=== PATIENT | male | born 1955 | race Caucasian/White ===

== ENCOUNTER 2021-05-21 08:00 | Outpatient (CLI) | payer MEDICARE, SELFPAY ==
[2021-05-21 09:18] LABS: Alanine Aminotransferase 45 U/L (16-63); Albumin Level 3.4 g/dL (3.4-5.0); Alkaline Phosphatase 76 U/L (46-116); Anion Gap 9 mmol/L (8-16); Aspartate Amino Transferase 41 U/L (15-37); Bilirubin,Total 0.5 mg/dL (0.00-1.00); Blood Urea Nitrogen 43 mg/dL (7-18); Calcium 9.8 mg/dL (8.5-10.1); Carbon Dioxide 24 mmol/L (21-32); Chloride 107 mmol/L (98-108); Estimated Glomerular Filt Rate 49; Glucose 102 mg/dL (70-99); Osmolality Calculated 300 mOsm/kg (285-295); Potassium 5.4 mmol/L (3.5-5.1); Sodium 140 mmol/L (136-145); Total Protein 6.5 g/dL (6.4-8.2)
== END 2021-05-21 08:01 | disposition home or self-care (01) ==
LOC: CHSLAB 08:02
PROVIDERS: PCP Internal Medicine; Visit Provider Internal Medicine
DX: R79.89 Other specified abnormal findings of blood chemistry (principal)
CPT/HCPCS: 36415; 80053

== ENCOUNTER 2022-06-07 09:32 | Outpatient (CLI) | payer MEDICARE, SELFPAY ==
--- NOTE | ~2022-06-07 | XR_ITS ---
EXAMINATION: XR knee LT min 4V DATE: 06/07/2022 09:57 INDICATION: Left knee chronic pain. TECHNIQUE: 4 views of left knee including weightbearing views were obtained. COMPARISON: None. FINDINGS: There is lateral subluxation of patella. No fracture. There is moderate osteoarthritis of p atellofemoral compartment and mild osteoarthritis of medial and lateral compartments. There is chondr ocalcinosis of the menisci. No knee joint effusion. IMPRESSION: 1. Moderate left knee osteoarthritis. Reviewed, dictated and finalized at location A.
--- NOTE | ~2022-06-07 | XR_ITS ---
EXAMINATION: XR knee RT min 4V DATE: 06/07/2022 09:58 INDICATION: Right knee pain. TECHNIQUE: 4 views of right knee were obtained. COMPARISON: None. FINDINGS: There is varus angulation at the knee. No fracture. There is moderate osteoarthritis of med ial compartment and mild osteoarthritis of lateral and patellofemoral compartments. There is a small knee joint effusion with loose bodies. There are surgical clips in the medial soft tissues. IMPRESSION: 1. Moderate right knee osteoarthritis. 2. Small right knee joint effusion with loose bodies. Reviewed, dictated and finalized at location A.
== END 2022-06-07 09:33 | disposition home or self-care (01) ==
LOC: CHSIMG 09:34
PROVIDERS: PCP Internal Medicine; Visit Provider Internal Medicine
DX: M25.562 Pain in left knee (principal); M25.561 Pain in right knee; M17.0 Bilateral primary osteoarthritis of knee
CPT/HCPCS: 73564

== ENCOUNTER 2022-06-14 14:57 | Outpatient (RCR) | payer MEDICARE, SELFPAY ==
--- NOTE | 2022-06-14 17:52 | PTOPEVAL ---
Thank you for referring Will Collado to [facility].? The patient is scheduled to be seen for therapy? 2x/week for 10 visits. Please review, sign, date and return this plan of care UMA. I agree with and certify that the following plan of care is medically necessary. Referring Physician Date Admitting Provider: Attending Provider: Carrillo Mazariegos MD Referring Provider: *PT Outpatient Evaluation Start: 06/14/22 14:22 Freq: Status: Active Protocol: Document 06/14/22 14:22 [facility] (Rec: 06/14/22 16:00 [facility] [id number]) Therapy Assessment Status Assessment Status Assessment Status Evaluation Evaluation Information Problem Diagnosis Bilateral knee pain Onset 06/09/2022 Subjective Information Pt reports bilateral knee pain Query Text:As Reported By Patient/ that has been worsening over Family the past 5 years. Pain is generally about the same in both knees but patient reports some increased difficulty when using his R knee. Pain is felt at the front of the knee and sometimes in the knee joint, and pt also notes some pain behind his knee. Pain is described as an aching. Pt reports difficulty when getting in and out of car, squatting, lifting, and using ladder. Pain is constant. Denies falls. Likes to ride motorcycles. Prior Level of Function Activity Level (Last 3 Months) Occupation Retired Activity of Daily Living Ability Independent Indoor/Home Mobility Independent Community Mobility Independent Stairs Ability Independent Functional Cognition (Planning, Shopping Independent , Taking Medications) Cooking Yes Cleaning Yes Laundry Yes Shopping Yes Driving Yes Pain Assessment Timing of Pain Assessment Timing of Pain Assessment Pre-Treatment Pain Scale Pain Scale Used Numeric (1 - 10) Self Report Pain Assessment Bilateral Knee(s) Reported Pain Level 5 Pain Description Aching Pain Score Pain Score 5: Self Report Interventions Used Interventions Used By Clinicians Activity or ADL's,Education, Exercise,Manual Therapy Techniques Lower
== END 2022-07-09 16:43 | disposition home or self-care (01) ==
LOC: CHSPT 14:57
PROVIDERS: PCP Internal Medicine; Visit Provider Internal Medicine
DX: M25.562 Pain in left knee (principal); M25.561 Pain in right knee
CPT/HCPCS: 97014; 97110; 97140; G0283

== ENCOUNTER 2023-03-17 09:46 | Outpatient (CLI) | payer MEDICARE, SELFPAY ==
--- NOTE | ~2023-03-17 | MR_ITS ---
MRI of the cervical spine Clinical History: Cervical radiculopathy Technique: Axial T2-weighted and gradient images, and sagittal T1-weighted, T2-weighted, and STIR prosper ges were acquired. Findings: There is no fracture or subluxation of the cervical spine. Vertebral bodies maintain normal height and alignment. No suspicious bone marrow signal abnormality seen. At C2-C3, there is no significant disc bulge or herniation. No spinal canal stenosis, cord compressio n, or neural foraminal narrowing. At C3-C4, there is mild disc osteophyte complex. No definite canal stenosis or cord compression. Prob able mild bilateral neural foraminal narrowing with minimal facet arthropathy. At C4-C5, there is disc osteophyte complex without doroteo cord compression. Bilateral neural foramina are preserved. At C5-C6, there is disc osteophyte complex resulting in mild canal stenosis and minimal flattening th e ventral cord. There is bilateral neural foraminal narrowing, right worse than left. At C6-C7, there is central disc protrusion resulting in mild canal stenosis without doroteo cord compre ssion. There is probable bilateral neural foraminal narrowing, right worse than left. No abnormal signal seen in the spinal cord. Paravertebral soft tissues are unremarkable. Impression: Mild degenerative spondylosis overall, as detailed above. Reviewed, dictated and finalized at [facility]. Impression: Mild degenerative spondylosis overall, as detailed above.
== END 2023-03-17 09:47 | disposition home or self-care (01) ==
LOC: CHSIMG 09:48
PROVIDERS: PCP Internal Medicine; Visit Provider Internal Medicine
DX: M54.12 Radiculopathy, cervical region (principal); M43.02 Spondylolysis, cervical region
CPT/HCPCS: 72141

== ENCOUNTER 2023-03-24 16:16 | Outpatient (RCR) | payer MEDICARE, SELFPAY ==
--- NOTE | 2023-03-24 17:18 | PTOPEVAL1 ---
Assessment and note entered by Christal Floyd DPT Evaluation Information Assessment Status Evaluation Diagnosis neck pain, shoulder pain Subjective Information Patient reports neck pain that has been going on for about 3 weeks when he was changing the tranmission in his car. He reports he did not have pain at that moment but woke up a few days later with pain. He reports pain is at the lower neck and radiates to the L shoulder. He reports that he also gets numbness and tingling to the small 3 fingers. Patient has difficulty with grasping, sleeping, mowing, and turning his head to drive. Prior to 3 weeks ago he did not have above limitations. He is retired but continues to do house and yard work. Reported Pain Level Pain Score 7: Self Report Assessment PT Clinical Summary Patient is a 68 year old male who presents to PT with neck and L shoulder pain. Patient demonstrates decreased mobility of the cervical spine, decreased L UE strength, positive L median and ulnar nerve ULNT tests and hyopmobility of the L GHJ indicating possible L shoulder arthritic involvement and cervical spine radiculopathy. He would benefit from skilled PT to address impairments and return to PLOF. Plan of Care Interventions Electrical Stimulation,Hot Pack/Cold Pack,Manual Therapy,Mechanical Traction,Neuro Re-education, Patient/Caregiver Educati,Therapeutic Activities, Therapeutic Exercise PT Services Indicated Yes Treatment Frequency and 2x weekly for 12 visits Duration These treatments will address the objective and functional deficits as defined above. The patient will be advanced safely and appropriately in order for the patient to progress towards his/her prior level of function. Additional exercises will be introduced and as well as a comprehensive home exercise program upon discharge, if needed, ?to ensure carryover of functional gains achieved in the clinic. This treatment plan has been reviewed and agreement upon by the patient.
--- NOTE | 2023-05-06 11:36 | PTOPDC ---
Assessment and note entered by Day Cisse, PT Evaluation Information Assessment Status Discharge Diagnosis Neck pain, cervical pain Onset 03/18/23 Subjective Information Mr. Collado reports he has not had any neck pain for some time and he has not had left shoulder pain recently either. He was able to go camping for the last week and did not experience any pain or restrictions. He has no limitations with daily activities due to his shoulder or neck and would like to make today his last PT visit. Reported Pain Level Pain Score 0: Self Report Assessment PT Clinical Summary has completed 10 skilled PT visits for left shoulder and neck pain. He is reporting a resolution of pain and has been able to return to all daily activities without restrictions. He objectively demonstrates improved cervical and left shoulder ROM to functional limits as well as good left shoulder strength. He will be disharged to an independent HEP. Plan of Care PT Services Indicated No
== END 2023-05-06 13:37 | disposition home or self-care (01) ==
LOC: CHSPT 16:16
PROVIDERS: PCP Internal Medicine; Visit Provider Internal Medicine
DX: M54.12 Radiculopathy, cervical region (principal); M54.2 Cervicalgia
CPT/HCPCS: 97014; 97110; 97112; 97140; 97150; 97161; 97530; G0283

== ENCOUNTER 2023-04-08 11:17 | Outpatient (CLI) | payer MEDICARE, SELFPAY ==
--- NOTE | 2023-04-08 11:36 | ECG_ITS ---
Measurements Intervals Bureau Rate: 60 P: 52 SD: 258 QRS: -58 QRSD: 125 T: 50 QT: 380 QTc: 382 Interpretive Statements SINUS RHYTHM WITH FIRST DEGREE AV BLOCK WITH OCCASIONAL VENTRICULAR PREMATURE COMPLEXES LEFT ANTERIOR FASCICULAR BLOCK [QRS AXIS <= -45, QR IN I, RS IN II] ABNORMAL ECG NO PREVIOUS ECG AVAILABLE FOR COMPARISON Electronically Signed On 04-11-2023 9:20:28 CDT by Denys Stanley M.D.
== END 2023-04-08 11:18 | disposition home or self-care (01) ==
PROVIDERS: PCP Internal Medicine; Visit Provider Internal Medicine
DX: R00.2 Palpitations (principal); R94.31 Abnormal electrocardiogram [ECG] [EKG]
CPT/HCPCS: 93005

== ENCOUNTER 2023-08-19 13:03 | Outpatient (RCR) | payer MEDICARE, SELFPAY ==
--- NOTE | 2023-08-19 14:11 | OPREHPOC ---
Outpatient Therapy Plan of Care This is a Multidisciplinary Plan of Care that may contain components documented by all disciplines (PT, OT, and ST.) PT Problem 1 PT Problem #1 Knowledge Deficit PT Goal 1 Goal Patient to demonstrate independence with HEP Target Visit 6 PT Problem 2 PT Problem #2 Pain PT Goal 1 Goal 1. Patient to report highest pain at 2/10 2. Patient to report ability to sleep with no disturbance due to L knee pain Target Visit 12 PT Problem 3 PT Problem #3 Impaired Strength PT Goal 1 Goal Patient to demonstrate 5/5 strength of the L knee to return to house hold chores at PLOF Target Visit 12 PT Problem 4 PT Problem #4 Impaired Range of Motion PT Goal 1 Goal Patient to demonstrate 0-130 deg of L knee AROM in order to return to dress tasks and ambulation at PLOF Target Visit 12 PT Problem 5 PT Problem #5 Impaired Functional Mobil PT Goal 1 Goal 1. Patient to demonstrate 50% improvement in LEFS 2. Patient to ambulate with no AD and equal weight shift to B LE during stance phase Target Visit 12
--- NOTE | 2023-08-19 14:11 | PTOPEVAL1 ---
Assessment and note entered by Christal Floyd DPT Evaluation Information Assessment Status Evaluation Diagnosis L knee pain Onset 08/10/23 Subjective Information Patient reports he underwent L TKA on 08/10/23. He reports he returns to the MD for his first follow up on 08/24/23. He reports they sent him home with a HEP. He reports he has difficulty with walking, sleeping, and getting up from a chair. He is walking with a FWW and prior to surgery did not use an AD. He is retired. Reported Pain Level Pain Score 8: Self Report Assessment PT Clinical Summary Patient is a 68 year old male who presents to PT with L knee pain s/p L TKA. Patient demonstrates decreased L knee ROM, decreased L knee strength and impaired gait mechanics impairing his ability to navigate within his home, complete house hold tasks and drive. He would benefit from skilled PT to address impairments and return to PLOF. Plan of Care Interventions Electrical Stimulation,Gait Training,Hot Pack/Cold Pack,Manual Therapy,Neuro Re-education,Patient/ Caregiver Educati,Therapeutic Activities, Therapeutic Exercise PT Services Indicated Yes Treatment Frequency and 3x weekly for 12 visits Duration These treatments will address the objective and functional deficits as defined above. The patient will be advanced safely and appropriately in order for the patient to progress towards his/her prior level of function. Additional exercises will be introduced and as well as a comprehensive home exercise program upon discharge, if needed, ?to ensure carryover of functional gains achieved in the clinic. This treatment plan has been reviewed and agreement upon by the patient.
--- NOTE | 2023-09-09 13:53 | OPREHPOC ---
Outpatient Therapy Plan of Care This is a Multidisciplinary Plan of Care that may contain components documented by all disciplines (PT, OT, and ST.) PT Problem 1 PT Problem #1 Knowledge Deficit PT Goal 1 Goal Patient to demonstrate independence with HEP Target Visit 6 Progress Met PT Problem 2 PT Problem #2 Pain PT Goal 1 Goal 1. Patient to report highest pain at 2/10 2. Patient to report ability to sleep with no disturbance due to L knee pain Target Visit 12 Comment continue PT Problem 3 PT Problem #3 Impaired Strength PT Goal 1 Goal Patient to demonstrate 5/5 strength of the L knee to return to house hold chores at PLOF Target Visit 12 Comment continue PT Problem 4 PT Problem #4 Impaired Range of Motion PT Goal 1 Goal Patient to demonstrate 0-130 deg of L knee AROM in order to return to dress tasks and ambulation at PLOF Target Visit 12 Comment continue PT Problem 5 PT Problem #5 Impaired Functional Mobil PT Goal 1 Goal 1. Patient to demonstrate 50% improvement in LEFS 2. Patient to ambulate with no AD and equal weight shift to B LE during stance phase Target Visit 12 Progress Partially Met Comment 2. met
--- NOTE | 2023-09-09 13:54 | PTOPPROG ---
Assessment and note entered by Christal Floyd DPT Evaluation Information Assessment Status Progress Diagnosis L knee pain Onset 08/10/23 Subjective Information Patient reports his knee is improving. He reports he is no longer using an AD. He reports most pain with prolonged ambulation. Assessment PT Clinical Summary Mr. Collado has been seen for 10 visits of skilled PT with great progress towards goals. He demonstrates improved L knee strength and ROM and has been able to ambulate without AD. He continues to lack full L knee flexion and has difficulty with prolonged ambulation. He would benefit from continued skilled PT to address remaining impairments and return to PLOF. Plan of Care Interventions Electrical Stimulation,Gait Training,Hot Pack/Cold Pack,Manual Therapy,Neuro Re-education,Patient/ Caregiver Educati,Therapeutic Activities, Therapeutic Exercise PT Services Indicated Yes Treatment Frequency and continue with remaining 2 visits Duration These treatments will address the objective and functional deficits as defined above. The patient will be advanced safely and appropriately in order for the patient to progress towards his/her prior level of function. Additional exercises will be introduced and as well as a comprehensive home exercise program upon discharge, if needed, ?to ensure carryover of functional gains achieved in the clinic. This treatment plan has been reviewed and agreement upon by the patient.
--- NOTE | 2023-09-16 11:56 | OPREHPOC ---
Outpatient Therapy Plan of Care This is a Multidisciplinary Plan of Care that may contain components documented by all disciplines (PT, OT, and ST.) PT Problem 1 PT Problem #1 Knowledge Deficit PT Goal 1 Goal Patient to demonstrate independence with HEP Target Visit 6 Progress Met PT Problem 2 PT Problem #2 Pain PT Goal 1 Goal 1. Patient to report highest pain at 2/10 2. Patient to report ability to sleep with no disturbance due to L knee pain Target Visit 12 Comment continue PT Problem 3 PT Problem #3 Impaired Strength PT Goal 1 Goal Patient to demonstrate 5/5 strength of the L knee to return to house hold chores at PLOF Target Visit 12 Progress Met Comment continue PT Problem 4 PT Problem #4 Impaired Range of Motion PT Goal 1 Goal Patient to demonstrate 0-130 deg of L knee AROM in order to return to dress tasks and ambulation at PLOF Target Visit 16 Comment progressing PT Problem 5 PT Problem #5 Impaired Functional Mobil PT Goal 1 Goal 1. Patient to demonstrate 50% improvement in LEFS 2. Patient to ambulate with no AD and equal weight shift to B LE during stance phase Target Visit 16 Progress Partially Met Comment 2. met
--- NOTE | 2023-09-16 11:56 | PTOPREEVAL ---
Assessment and note entered by Christal Floyd DPT Evaluation Information Assessment Status Re-evaluation Diagnosis L knee pain Onset 08/10/23 Subjective Information Patient reports his knee is improving. He reports he is no longer using an AD. He reports most pain with prolonged ambulation. Reported Pain Level Pain Score 2: Self Report Assessment PT Clinical Summary Mr Collado has been seen for 12 visits of skilled PT . Patient demonstrates -2-122deg of L knee AROM and 5/5 strength of the L knee. Patient has improved gait mechanics but continues to fatigue quickly and has pain with prolonged ambulation. Patient would benefit from continued skilled PT to address remaining impairments and return to PLOF. Plan of Care Interventions Electrical Stimulation,Gait Training,Hot Pack/Cold Pack,Manual Therapy,Neuro Re-education,Patient/ Caregiver Educati,Therapeutic Activities, Therapeutic Exercise PT Services Indicated Yes Treatment Frequency and continue 2x weekly for 4 more visits Duration These treatments will address the objective and functional deficits as defined above. The patient will be advanced safely and appropriately in order for the patient to progress towards his/her prior level of function. Additional exercises will be introduced and as well as a comprehensive home exercise program upon discharge, if needed, ?to ensure carryover of functional gains achieved in the clinic. This treatment plan has been reviewed and agreement upon by the patient.
--- NOTE | 2023-09-22 14:04 | OPREHPOC ---
Outpatient Therapy Plan of Care This is a Multidisciplinary Plan of Care that may contain components documented by all disciplines (PT, OT, and ST.) PT Problem 1 PT Problem #1 Knowledge Deficit PT Goal 1 Goal Patient to demonstrate independence with HEP Target Visit 6 Progress Met PT Problem 2 PT Problem #2 Pain PT Goal 1 Goal 1. Patient to report highest pain at 2/10 2. Patient to report ability to sleep with no disturbance due to L knee pain Target Visit 12 Progress Not Met Comment continue PT Problem 3 PT Problem #3 Impaired Strength PT Goal 1 Goal Patient to demonstrate 5/5 strength of the L knee to return to house hold chores at PLOF Target Visit 12 Progress Met Comment continue PT Problem 4 PT Problem #4 Impaired Range of Motion PT Goal 1 Goal Patient to demonstrate 0-130 deg of L knee AROM in order to return to dress tasks and ambulation at PLOF Target Visit 16 Progress Met PT Problem 5 PT Problem #5 Impaired Functional Mobil PT Goal 1 Goal 1. Patient to demonstrate 50% improvement in LEFS 2. Patient to ambulate with no AD and equal weight shift to B LE during stance phase Target Visit 16 Progress Met
--- NOTE | 2023-09-22 14:04 | PTOPDC ---
Assessment and note entered by Christal Floyd DPT Evaluation Information Assessment Status Re-evaluation Diagnosis L knee pain Onset 08/10/23 Subjective Information Patient reports he is back to doing all activities he was doing prior for surgery. He reports MD released him and told him his knee was doing good. He reports he is somewhat doing his HEP Reported Pain Level Pain Score 3: Self Report Assessment PT Clinical Summary Mr. Collado attended 14 visits of skilled PT with great progress and release by MD. He met all goals except for pain during POC. He has achieved 130 deg of L knee flexion as well as 5/5 strength of the L knee. He has returned to all previous ALDs and is appropriate for DC at this time. Plan of Care PT Services Indicated No
== END 2023-09-22 14:46 | disposition home or self-care (01) ==
LOC: CHSPT 13:03
PROVIDERS: PCP Internal Medicine; Visit Provider Orthopaedic Surgery
DX: Z96.652 Presence of left artificial knee joint (principal); Z47.1 Aftercare following joint replacement surgery
CPT/HCPCS: 97016; 97110; 97150; 97161; 97530

== ENCOUNTER 2024-03-12 03:02 | Emergency (ER) | payer MEDICARE, SELFPAY ==
[2024-03-12] VITALS (34 sets, daily range): BP systolic 92–126; BP diastolic 48–85; PULSE 32–49; RESP 12–59; TEMP 35.3; O2SAT 95–100
--- NOTE | ~2024-03-12 | XR_ITS ---
Portable chest x-ray Comparison: 05/12/2013 Clinical History: Altered mental status Findings: Possible minimal interstitial edema. Cardiomediastinal silhouette is stable, status post CABG. Bones and soft tissues are unremarkable. Impression: Possible minimal interstitial edema. Stable cardiomegaly, status post CABG. Reviewed, dictated and finalized at [facility]. Impression: Possible minimal interstitial edema. Stable cardiomegaly, status post CABG.
--- NOTE | ~2024-03-12 | CT_ITS ---
Noncontrast CT scan of the cervical spine Technique: Multiple contiguous axial [address] images of the cervical spine were obtained and rec onstructed in 2D sagittal and coronal planes on the acquisition scanner. Dose reduction technique was used on this scan by utilizing automated exposure control, adjustment of the mA and/or kV according to patient size. The dose-length product (DLP) was 493.59 mGy-cm. Clinical History: Pain Findings: No fractures or dislocations. There is moderate degenerative disc narrowing at C5-C6 and C 6-C7. There are mild degenerative changes remaining cervical levels. There are mild facet joint degen erative changes in the cervical spine. There is bilateral neural foraminal narrowing at C5-C6 and C6- C7., Mild canal stenosis at C5-C6 and C6-C7, with disc osteophyte complexes at these levels. No preve rtebral soft tissue swelling. Impression: No fracture or subluxation of the cervical spine. Degenerative change, as above. Reviewed, dictated and finalized at [facility]. Impression: No fracture or subluxation of the cervical spine. Degenerative change, as above.
--- NOTE | ~2024-03-12 | CT_ITS ---
Non-contrast Head CT History: Status post fall Technique: Axial non-contrast imaging of the brain was performed. Dose reduction technique was used on this scan by utilizing automated exposure control and iterative reconstruction technique. The dose -length product (DLP) was 605.33 mGy-cm. Findings: There is no evidence of intracranial hemorrhage, mass lesion, or acute infarct. Brain par enchyma appears normal. The ventricles and subarachnoid spaces are normal in size. The calvarium ap pears normal. The visualized paranasal sinuses and mastoid air cells are clear. Impression: No significant abnormality seen. Reviewed, dictated and finalized at location . Impression: No significant abnormality seen.
--- NOTE | ~2024-03-12 | CT_ITS ---
Clinical Indication: Hypertension, elevated d-dimer CT Scan of the Chest with Contrast: Technique: Contiguous sections were acquired throughout the chest after intravenous administration of 100 cc of Omnipaque 350. Dose reduction technique was used on this scan by utilizing automated expos ure control and iterative reconstruction technique. The dose-length product (DLP) was 865.30 mGy-cm. Findings: There is no evidence of any significant mediastinal, hilar or axillary lymphadenopathy. There is no f illing defect in the pulmonary arterial tree to suggest pulmonary embolus. There is no evidence of ao rtic dissection or aneurysm. Cardiomegaly noted. There is no evidence of pleural or pericardial effusion. There is probable mild interstitial thickening diffusely in the lungs. Images through the upper abdomen reveal distended, but otherwise unremarkable gallbladder. Impression: No evidence of pulmonary embolus, aortic dissection, or aortic aneurysm. Probable minimal interstitial edema versus minimal chronic interstitial disease. Reviewed, dictated and finalized at [facility]. Impression: No evidence of pulmonary embolus, aortic dissection, or aortic aneurysm. Probable minimal interstitial edema versus minimal chronic interstitial disease .
--- NOTE | 2024-03-12 03:05 | ED.AMS ---
HPI - Altered Mental Status General Chief Complaint: Altered Mental Status Stated Complaint: Diabetic Issues Time Seen by Provider: 03/12/24 03:05 Source: patient and EMS Mode of arrival: EMS Limitations: no limitations History of Present Illness HPI narrative: Patient is a 69-year-old male with altered mental status and confusion since 2:00 a.m. vs 10pm (she saw him well at 10pm and he walked to the bathroom at 2am and found on floor). He went to the bathroom and was well according to the and was found on the floor around the same time. EMS BS: 38 (back to normal in ER and still AMS) FAST: R droop, slurred speech, LKW 10p and walked to BR 2a () GCS: AMS (8) EKG: SB in 40s MD complaint: altered mental status, confusion and decreased responsiveness Onset (ago): hour(s) (1) Time: 02:00 Timing confirmed by: spouse Severity: moderate Consistency of symptoms: waxing and waning Context: other (DM2/CAD/HTN) Associated symptoms: denies other symptoms Treatments prior to arrival: glucose, IV fluid and other (Narcan, Atropine) Related Data Home Medications Medication Instructions Recorded Confirmed Adult Aspirin EC Low Strength 81 mg PO DAILY 03/12/24 03/12/24 atorvastatin 80 mg tablet 80 mg PO DAILY 03/12/24 03/12/24 carvedilol 12.5 mg tablet 12.5 mg PO BID 03/12/24 03/12/24 celecoxib 200 mg capsule 200 mg PO DAILY 03/12/24 03/12/24 clopidogrel 75 mg tablet 75 mg PO DAILY 03/12/24 03/12/24 escitalopram oxalate 20 mg tablet 20 mg PO DAILY 03/12/24 03/12/24 ferrous sulfate 325 mg (65 mg 325 mg PO DAILY 03/12/24 03/12/24 iron) tablet (FeroSul) gabapentin 300 mg capsule 600 mg PO BID 03/12/24 03/12/24 lisinopril 40 mg tablet 40 mg PO DAILY 03/12/24 03/12/24 ranolazine 500 mg tablet,extended 500 mg PO BID 03/12/24 03/12/24 release,12 hr Allergies Allergy/AdvReac Type Severity Reaction Status Date / Time No Known Allergies Allergy Verified 03/12/24 04:18 Review of Systems Review of Systems: All systems reviewed & are unremarkable except as noted in HPI and below Constitutional: Constitutional: Reports no additional constitutional complaints Eyes: Eyes: Reports no additional eye complaints ENT: Reports system reviewed and no additional complaints, except as documented Cardiovascular: Cardiovascular: Reports no additional cardiovascular complaints Respiratory: Respiratory: Reports no additional respiratory complaints Gastrointestinal: Gastrointestinal: Reports no additional gastrointestinal complaints Genitourinary: Genitourinary: Reports no additional male genitourinary complaints Musculoskeletal: Musculoskeletal: Reports no additional musculoskeletal complaints Integumentary/Breasts: Skin/Breast: Reports system reviewed and no additional complaints, except as docu Neurologic: Reports system reviewed and no additional complaints, except as documented Psychiatric: Psychiatric: Reports no additional psychiatric complaints Endocrine: Endocrine: Reports no additional endocrine complaints Hematologic/Lymphatic: Hematologic/Lymphatic: Reports no additional hematologic/lymphatic complaints Allergic/Immunologic: Allergic/Immunologic: Reports no additional allergic/immunologic complaints Exam Const: General: ill appearing Nutritional Appearance: well nourished Orientation/consciousness: No patient oriented x3 Limitations: altered mental status HENMT: Head: normal to inspection Ears: external ears normal Face/Nose/Sinus: Normal external nose present Eyes: Conjunctivae: conjunctivae normal Pupils: Equal, round and reactive pupils present EOM: EOMs intact bilaterally Neck: Neck: normal visual inspection Chest: Chest palpation & inspection: normal inspection of the chest Resp: Effort & Inspection: normal respiratory effort and not labored Auscultation: clear to auscultation bilaterally Cardio: Rate: abnormal rate and bradycardic Rhythm: regular rhythm Heart sounds: no murmurs GI: Inspectio
[2024-03-12 03:24] LABS: Glucose Point of Care 149 mg/dl (65-105)
[2024-03-12] MEDS: ATROPINE SULFATE 1 MG/10 ML SYRINGE (03:26)
--- NOTE | 2024-03-12 03:44 | ECG_ITS ---
SEE SCANNED COPY FOR CONFIRMED REPORT MTDD
[2024-03-12 03:57] LABS: Basophils Absolute Auto 0.03 K/mm3 (0.00-0.10); Basophils Percent Auto 0.3 % (0.0-1.0); Eosinophils Absolute Auto 0.16 K/mm3 (0.02-0.50); Eosinophils Percent Auto 1.7 % (1.0-6.0); Hematocrit 38.9 % (37.0-46.0); Hemoglobin 12.5 g/dL (12.4-15.3); Immature Granulocyte Absolute 0.13 K/mm3 (0.00-0.00); Immature Granulocyte Percent A 1.4 % (0.0-0.0); Lymphocytes Absolute Auto 1.28 K/mm3 (1.10-4.50); Lymphocytes Percent Auto 13.4 % (18.0-42.0); Mean Corpuscular HGB Conc 32.1 g/dL (32-36); Mean Corpuscular Hemoglobin 31.8 pg (27.0-31.0); Monocytes Absolute Auto 0.76 K/mm3 (0.10-0.90); Neutrophils Absolute Auto 7.16 K/mm3 (1.70-7.20); Neutrophils Percent Auto 75.2 % (50.0-70.0); Platelet Count Result 138 K/mm3 (150-420); Red Blood Count 3.93 M/mm3 (4.70-6.10); Red Cell Distribution Width 13.4 % (11.6-14.4); White Blood Count 9.5 K/mm3 (4.8-10.8)
[2024-03-12 04:05] LABS: Prothrombin Time 10.5 Seconds (9.50-12.1)
[2024-03-12] MEDS: SODIUM CHLORIDE 0.9% IV 1,000 ML 999 ML (04:09)
[2024-03-12 04:12] LABS: Lactic Acid Reflex 1.6 mmol/L (0.4-2.0)
[2024-03-12 04:15] LABS: Alanine Aminotransferase 31 U/L (16-63); Albumin Level 3.6 g/dL (3.4-5.0); Alkaline Phosphatase 74 U/L (46-116); Anion Gap 10 mmol/L (4-12); Aspartate Amino Transferase 30 U/L (15-37); Bilirubin,Total 0.6 mg/dL (0.00-1.00); Blood Urea Nitrogen 25 mg/dL (7-18); Carbon Dioxide 28 mmol/L (21-32); Chloride 101 mmol/L (98-108); D Dimer 1.38 mg/L (0.19-0.50); Estimated CRCL calculation 53 ml/min; Estimated Glomerular Filt Rate 44; Glucose 118 mg/dL (70-99); Magnesium 2.2 mg/dL (1.8-2.4); NT Pro B Type Natriuretic Pept 573 pg/mL (0-125); Osmolality Calculated 293 mOsm/kg (285-295); Potassium 3.7 mmol/L (3.5-5.1); Sodium 139 mmol/L (136-145); Thyroid Stimulating Hormone 3.62 uIU/mL (0.36-3.74); Troponin I 16.8 ng/L (0.00-60.4)
[2024-03-12 04:27] LABS: Glucose Point of Care 88 mg/dl (65-105)
[2024-03-12] MEDS: DEXTROSE 50% 25 GM/50 ML SYRINGE IV PUSH (04:30)
[2024-03-12 05:41] LABS: Glucose Point of Care 143 mg/dl (65-105)
[2024-03-12 05:59] LABS: Appearance Urine Clear (Clear); Bilirubin Urine Negative (Negative); Blood Urine 2+ (Negative); Color Urine Yellow (Yellow); Glucose Urine UA Negative (Negative); Ketones Urine Negative (Negative); Leukocyte Esterase Ur Negative LEU/UL (Negative); Nitrate Urine Negative (Negative); Protein Urine Negative (Negative); Specific Grav Ur <= 1.005 (1.010-1.020)
[2024-03-12 06:03] LABS: Add Urine Microscopic? YES; WBC Urine None seen /hpf (0-3)
[2024-03-12 06:04] LABS: Bacteria Urine Rare /hpf
[2024-03-12 06:35] LABS: Glucose Point of Care 121 mg/dl (65-105)
--- NOTE | 2024-03-18 12:39 | PC.NURSE ---
03/18/24 FINAL BLOOD CULTURE NO GROWTH AFTER 5 DAYS
== END 2024-03-12 07:00 | disposition home or self-care (01) ==
PROVIDERS: Emergency Provider Emergency Medicine; PCP Internal Medicine
DX: E11.649 Type 2 diabetes mellitus with hypoglycemia without coma (principal); N17.9 Acute kidney failure, unspecified; E86.0 Dehydration; I25.10 Atherosclerotic heart disease of native coronary artery without angina pectoris; I10 Essential (primary) hypertension
CPT/HCPCS: 36415; 70450; 71045; 71275; 72125; 80053; 81001; 82948; 83605; 83735; 83880; 84443; 84484; 85025; 85380; 85610; 85730; 87040; 93005; 96361; 96374; 96375; 99284; J0461; J7030; Q9967

== ENCOUNTER 2024-03-24 07:26 | Outpatient (CLI) | payer MEDICARE, SELFPAY ==
--- NOTE | ~2024-03-24 | MR_ITS ---
EXAMINATION: MR lumbar spine wo con DATE: 03/24/2024 08:20 INDICATION: Lumbar stenosis. TECHNIQUE: Magnetic resonance imaging (MRI) of the lumbar spine was performed without intravenous con trast. Sequences included sagittal T2-weighted FSE, sagittal T2-weighted FS FSE, sagittal T1-weighted FSE, and axial T2-weighted FSE. COMPARISON: Lumbar spine MRI 10/24/2019 FINDINGS: There is 3 mm retrolisthesis of T12 on L1 and L1 on L2 and 7 mm anterolisthesis of L4 on L5 . There is mild chronic anterior wedging of T12, L1, and L4 vertebral bodies. There is mildly decreas ed disc height at T12-L1, L1-L2, L3-L4, and L4-L5. The distal spinal cord signal intensity is normal. The conus medullaris is at T12-L1. The following disc levels are specifically discussed: L1-L2: The disc is bulging and has an annular fissure. There is moderate right and mild left facet josesito int osteoarthritis. There is mild bilateral neural foraminal stenosis. There is mild central canal st enosis. L2-L3: The disc is bulging and has an annular fissure. There is severe bilateral facet joint osteoart hritis. There is mild right and moderate left neural foraminal stenosis. There is mild central canal stenosis. L3-L4: The disc is bulging and has an annular fissure. There is severe bilateral facet joint osteoart hritis. There is moderate right and mild left neural foraminal stenosis. There is mild central canal stenosis. L4-L5: The disc is bulging with superimposed right subarticular zone extrusion. There is severe bilat eral facet joint osteoarthritis. There is moderate bilateral neural foraminal stenosis. There is mild central canal stenosis. There is severe stenosis of the right lateral recess. There are changes of p osterior decompression. L5-S1: There is a central protrusion. There is severe bilateral facet joint osteoarthritis. There is mild bilateral neural foraminal stenosis. There is mild central canal stenosis. IMPRESSION: 1. Moderate lumbar spondylosis, worsened at L4-L5. Reviewed, dictated and finalized at location A.
== END 2024-03-24 07:27 | disposition home or self-care (01) ==
LOC: CHSIMG 07:27
PROVIDERS: PCP Internal Medicine; Visit Provider Internal Medicine
DX: M48.061 Spinal stenosis, lumbar region without neurogenic claudication (principal); M43.06 Spondylolysis, lumbar region
CPT/HCPCS: 72148

== ENCOUNTER 2024-07-07 11:36 | Emergency (ER) | payer MEDICARE, SELFPAY ==
[2024-07-07] VITALS (25 sets, daily range): BP systolic 93–125; BP diastolic 46–78; PULSE 50–68; RESP 0–31; TEMP 36.8; O2SAT 96–100
--- NOTE | ~2024-07-07 | XR_ITS ---
XR chest 1V portable 07/07/2024 12:01 Indication: Chest pain for 3 days Procedure: AP portable chest Comparison: 03/12/2024 Findings: Status post median sternotomy for CABG. Cardiomegaly. Mild pulmonary vascular congestion. N o focal pneumonia, edema, pleural effusion or pneumothorax. Impression: 1: Cardiomegaly with pulmonary vascular congestion. Reviewed, dictated and finalized at location B. Impression: 1: Cardiomegaly with pulmonary vascular congestion.
--- NOTE | 2024-07-07 11:48 | ECG_ITS ---
Test Date: 2024-07-07 11:56:52 Measurements Intervals [place] Rate: 60 P: 16 CT: 248 QRS: -57 QRSD: 120 T: 93 QT: 417 QTc: 417 Interpretive Statements SINUS RHYTHM WITH FIRST DEGREE AV BLOCK LEFT ANTERIOR FASCICULAR BLOCK NONSPECIFIC ST & T-WAVE ABNORMALITY- HIGH LATERAL LEADS BASELINE ARTIFACT- I, III, AVR, AVL ABNORMAL ECG No previous ECG available for comparison Electronically Signed On 07-08-2024 07:56:08 CDT by Reese Moffett D.O.
[2024-07-07] MEDS: ASPIRIN 81 MG CHEWABLE TABLET 324 MG PO (12:07)
[2024-07-07 12:17] LABS: Basophils Absolute Auto 0.03 K/mm3 (0.00-0.10); Basophils Percent Auto 0.3 % (0.0-1.0); Eosinophils Absolute Auto 0.03 K/mm3 (0.02-0.50); Eosinophils Percent Auto 0.3 % (1.0-6.0); Hematocrit 32.9 % (37.0-46.0); Hemoglobin 11.1 g/dL (12.4-15.3); Immature Granulocyte Absolute 0.03 K/mm3 (0.00-0.00); Immature Granulocyte Percent A 0.3 % (0.0-0.0); Lymphocytes Absolute Auto 1.02 K/mm3 (1.10-4.50); Lymphocytes Percent Auto 11.8 % (18.0-42.0); Mean Corpuscular HGB Conc 33.7 g/dL (32-36); Mean Corpuscular Hemoglobin 32.8 pg (27.0-31.0); Mean Corpuscular Volume 97.3 fL (78.0-102.0); Mean Platelet Volume 11.6 fl (8.7-11.0); Monocytes Absolute Auto 0.86 K/mm3 (0.10-0.90); Monocytes Percent Auto 9.9 % (2.0-11.0); Neutrophils Absolute Auto 6.71 K/mm3 (1.70-7.20); Neutrophils Percent Auto 77.4 % (50.0-70.0); Platelet Count Result 135 K/mm3 (150-420); Red Blood Count 3.38 M/mm3 (4.70-6.10); Red Cell Distribution Width 13.2 % (11.6-14.4); White Blood Count 8.7 K/mm3 (4.8-10.8)
[2024-07-07 12:27] LABS: Add Urine Microscopic? NO; Appearance Urine Clear (Clear); Bilirubin Urine Negative (Negative); Blood Urine Negative (Negative); Color Urine Light Yellow (Yellow); Glucose Urine UA 1+ (Negative); Ketones Urine Negative (Negative); Leukocyte Esterase Ur Negative LEU/UL (Negative); Nitrate Urine Negative (Negative); Protein Urine Negative (Negative); Specific Grav Ur 1.015 (1.010-1.020); pH Urine 6.5 (5.0-8.0)
[2024-07-07 12:29] LABS: INR 0.9; Partial Thromboplastin Time 23.8 Sec (23.9-30.70); Prothrombin Time 10.4 Seconds (9.50-12.1)
[2024-07-07 12:38] LABS: Alanine Aminotransferase 168 U/L (16-63); Albumin Level 2.9 g/dL (3.4-5.0); Alkaline Phosphatase 89 U/L (46-116); Anion Gap 12 mmol/L (4-12); Aspartate Amino Transferase 257 U/L (15-37); Bilirubin,Total 0.7 mg/dL (0.00-1.00); Blood Urea Nitrogen 19 mg/dL (7-18); Carbon Dioxide 23 mmol/L (21-32); Chloride 101 mmol/L (98-108); Estimated CRCL calculation 58 ml/min; Estimated Glomerular Filt Rate > 60; Glucose 231 mg/dL (70-99); Lipase 28 U/L (16-77); NT Pro B Type Natriuretic Pept 4406 pg/mL (0-125); Osmolality Calculated 291 mOsm/kg (285-295); Potassium 4.1 mmol/L (3.5-5.1); Sodium 136 mmol/L (136-145); Total Protein 6.4 g/dL (6.4-8.2)
--- NOTE | 2024-07-07 12:39 | PC.NURSE ---
Lab reports troponin is critically high but machine wont read and has to dilute down which means its over [id number], ERP is made aware.
[2024-07-07 12:52] LABS: SARS-CoV-2 RNA PCR Negative (Negative)
[2024-07-07 12:54] LABS: Influenza A QL RT-PCR Negative (Negative); Influenza B QL RT-PCR Negative (Negative); RSV RNA, RT-PCR Negative (Negative)
[2024-07-07 13:00] LABS: Troponin I > 25000.0 ng/L (0.00-60.4)
[2024-07-07] MEDS: HEPARIN SODIUM 5,000 UNITS/ML VIAL 4000 UNITS IV PUSH (13:03)
[2024-07-07] MEDS: HEPARIN SOD/D5W 100 UNITS/ML 25,000 UNITS/250 ML BAG 10 UNITS IV CONT (13:04)
--- NOTE | 2024-07-07 13:08 | ED.CHESTPAIN ---
HPI - Chest Pain General Chief Complaint: Chest Pain Stated Complaint: heart problems Time Seen by Provider: 07/07/24 11:42 Source: patient and family Mode of arrival: ambulatory Limitations: no limitations History of Present Illness HPI narrative: this is a 69 old male with a significant coronary artery history with bypass approximately 4 years ago and numerous stent placement. Patient history of hyperlipidemia and hypertension presents with a 2 day history of chest pain tightness midsternal no radiation also having dyspnea and chest pain with minimal exertion started 2 days ago but has persisted and presents to the emergency department. No radiation of this pain no diaphoresis no nausea or vomiting, has nitro patch that he placed at home current pain is rated about a 4/10. MD complaint: chest pain Pertinent past history: coronary artery disease Onset (ago): day(s) Timing of current episode: constant Onset: during rest and during exertion Pain location: substernal Pain radiation: none Severity: mild Pain scale (0-10): 4 Quality: tightness and heaviness Relieving factors: nitroglycerin Exacerbating factors: exertion Treatment prior to arrival: nitroglycerin Risk Factors Coronary artery disease risk factors: hypertension Related Data Home Medications Medication Instructions Recorded Confirmed Adult Aspirin EC Low Strength 81 mg PO DAILY 03/12/24 03/12/24 atorvastatin 80 mg tablet 80 mg PO DAILY 03/12/24 03/12/24 carvedilol 12.5 mg tablet 12.5 mg PO BID 03/12/24 03/12/24 celecoxib 200 mg capsule 200 mg PO DAILY 03/12/24 03/12/24 clopidogrel 75 mg tablet 75 mg PO DAILY 03/12/24 03/12/24 escitalopram oxalate 20 mg tablet 20 mg PO DAILY 03/12/24 03/12/24 ferrous sulfate 325 mg (65 mg 325 mg PO DAILY 03/12/24 03/12/24 iron) tablet (FeroSul) gabapentin 300 mg capsule 600 mg PO BID 03/12/24 03/12/24 lisinopril 40 mg tablet 40 mg PO DAILY 03/12/24 03/12/24 ranolazine 500 mg tablet,extended 500 mg PO BID 03/12/24 03/12/24 release,12 hr Allergies Allergy/AdvReac Type Severity Reaction Status Date / Time No Known Allergies Allergy Verified 07/07/24 12:18 Review of Systems Review of Systems: All systems reviewed & are unremarkable except as noted in HPI and below PMFSH Past Medical History Medical History CAD (coronary artery disease) HLD (hyperlipidemia) HTN (hypertension) Exam Const: General: no acute distress and alert Nutritional Appearance: well nourished Orientation/consciousness: patient oriented x3 Limitations: no limitations HENMT: Head: normal to inspection Eyes: Conjunctivae: conjunctivae normal Pupils: Equal, round and reactive pupils present Neck: Neck: normal visual inspection Chest: Chest palpation & inspection: normal inspection of the chest Resp: Effort & Inspection: normal respiratory effort Auscultation: clear to auscultation bilaterally Cardio: Rate: bradycardic Rhythm: regular rhythm GI: GI Palp: Yes Soft to palpation Auscultation: normal bowel sounds Skin: General skin exam: normal color Rashes: no rashes Neuro: General: patient oriented x3, moves all extremities, no meningeal signs and no focal motor deficits Course Course Emergency Course: patient with some EKG performed which shows normal sinus rhythm with a rate in the 60s with first-degree AV block, chest x-ray performed shows mild cardiomegaly with some peripheral vascular congestion with a BNP of 4400. Patient with nitro patch and current chest pain was about a 4/10 did receive full-dose aspirin. Troponin elevated to over 25,000, heparin started. Spoke to hospitalist [facility] accepted the patient for transfer Vital Signs Vital signs: Vital Signs Pulse Rate 65 07/07/24 11:42 Respiratory Rate 17 07/07/24 11:42 Pulse Oximetry 97 07/07/24 11:42 Temperature 36.8 C 07/07/24 11:44 Pulse Rate 56 L 07/07/24 13:16 Respiratory Rate 15
[2024-07-07] MEDS: SODIUM CHLORIDE 0.9% IV 500 ML 999 ML IV CONT (13:12)
== END 2024-07-07 14:26 | disposition short-term general hospital (02) ==
PROVIDERS: Emergency Provider Emergency Medicine; PCP Internal Medicine
DX: I21.4 Non-ST elevation (NSTEMI) myocardial infarction (principal); E78.5 Hyperlipidemia, unspecified; I10 Essential (primary) hypertension; I25.10 Atherosclerotic heart disease of native coronary artery without angina pectoris; Z20.822 Contact with and (suspected) exposure to COVID-19
CPT/HCPCS: 36415; 71045; 80053; 81003; 83690; 83880; 84484; 85025; 85610; 85730; 87637; 93005; 96365; 99285; A9270; J1644; J7040

== ENCOUNTER 2024-07-23 13:54 | Outpatient (CLI) | payer MEDICARE, SELFPAY ==
--- NOTE | ~2024-07-23 | US_ITS ---
BILATERAL LOWER EXTREMITY VENOUS ULTRASOUND Ordering provider: Carrillo Mazariegos MD History: . CHF, COUGH, DYSPNEA . Comparison: None. FINDINGS: RIGHT LOWER EXTREMITY VEINS: --COMMON FEMORAL: Patent and free of thrombus. Normal compressibility, phasic flow and augmentation. --PROXIMAL SUPERFICIAL FEMORAL: Patent and free of thrombus. Normal compressibility, phasic flow and augmentation. --DISTAL SUPERFICIAL FEMORAL: Patent and free of thrombus. Normal compressibility, phasic flow and au gmentation. --POPLITEAL: Patent and free of thrombus. Normal compressibility, phasic flow and augmentation. --POSTERIOR TIBIAL: Patent and free of thrombus. Normal compressibility, phasic flow and augmentation . LEFT LOWER EXTREMITY VEINS: --COMMON FEMORAL: Patent and free of thrombus. Normal compressibility, phasic flow and augmentation. --PROXIMAL SUPERFICIAL FEMORAL: Patent and free of thrombus. Normal compressibility, phasic flow and augmentation. --DISTAL SUPERFICIAL FEMORAL: Patent and free of thrombus. Normal compressibility, phasic flow and au gmentation. --POPLITEAL: Patent and free of thrombus. Normal compressibility, phasic flow and augmentation. --POSTERIOR TIBIAL: Patent and free of thrombus. Normal compressibility, phasic flow and augmentation . IMPRESSION: Negative bilateral lower extremity venous US. No deep vein thrombosis. Reviewed, dictated and finalized at location A.
--- NOTE | ~2024-07-23 | XR_ITS ---
XR chest 2V Ordering provider: Carrillo Mazariegos MD History: 69 years Male with . CHF, COUGH, DYSPNEA,CP X2-3WK . Comparison: None. FINDINGS: MEDIASTINUM: The cardiac silhouette is slightly enlarged. Postoperative changes in the mediastinum. C ongestive moshe. LUNGS: No pneumothorax. Prominent markings bilaterally with interstitial thickening. Focal opacificat ion seen in the right lower lobe area. Blunting of the costophrenic angles which may indicate minimal effusion. OTHER: No free air under the diaphragm. IMPRESSION: Cardiomegaly with cardiac decompensation and pulmonary edema. Pneumonitis is not excluded. Focal pneumonia in the right lower lobe is highly suggestive. Blunting of the costophrenic angle whic h may indicate atelectasis versus minimal effusion. Reviewed, dictated and finalized at location A. IMPRESSION: Cardiomegaly with cardiac decompensation and pulmonary edema. Pneumonitis is no t excluded. Focal pneumonia in the right lower lobe is highly suggestive. Blunting of the c ostophrenic angle which may indicate atelectasis versus minimal effusion.
[2024-07-23 14:18] LABS: Basophils Absolute Auto 0.03 K/mm3 (0.00-0.10); Basophils Percent Auto 0.3 % (0.0-1.0); Eosinophils Absolute Auto 0.05 K/mm3 (0.02-0.50); Eosinophils Percent Auto 0.5 % (1.0-6.0); Hemoglobin 9.4 g/dL (12.4-15.3); Immature Granulocyte Absolute 0.06 K/mm3 (0.00-0.00); Immature Granulocyte Percent A 0.6 % (0.0-0.0); Lymphocytes Absolute Auto 0.76 K/mm3 (1.10-4.50); Mean Corpuscular HGB Conc 32.4 g/dL (32-36); Mean Corpuscular Hemoglobin 32.4 pg (27.0-31.0); Monocytes Absolute Auto 0.63 K/mm3 (0.10-0.90); Monocytes Percent Auto 6.6 % (2.0-11.0); Neutrophils Absolute Auto 7.97 K/mm3 (1.70-7.20); Platelet Count Result 269 K/mm3 (150-420); Red Cell Distribution Width 13.3 % (11.6-14.4); White Blood Count 9.5 K/mm3 (4.8-10.8)
[2024-07-23 14:52] LABS: SARS-CoV-2 RNA PCR Positive (Negative)
[2024-07-23 15:00] LABS: Influenza A QL RT-PCR Negative (Negative); Influenza B QL RT-PCR Negative (Negative); RSV RNA, RT-PCR Negative (Negative); Strep Group A RT-PCR NOT DETECTED (Negative)
[2024-07-23 15:36] LABS: Alanine Aminotransferase 50 U/L (16-63); Albumin Level 2.9 g/dL (3.4-5.0); Alkaline Phosphatase 85 U/L (46-116); Anion Gap 10 mmol/L (4-12); Aspartate Amino Transferase 28 U/L (15-37); Bilirubin,Total 0.6 mg/dL (0.00-1.00); Blood Urea Nitrogen 28 mg/dL (7-18); Calcium 9.3 mg/dL (8.5-10.1); Carbon Dioxide 23 mmol/L (21-32); Chloride 101 mmol/L (98-108); Creatine Kinase 201 U/L (39-308); Estimated Glomerular Filt Rate 43; Glucose 167 mg/dL (70-99); NT Pro B Type Natriuretic Pept 17092 pg/mL (0-125); Osmolality Calculated 287 mOsm/kg (285-295); Sodium 134 mmol/L (136-145); Total Protein 6.4 g/dL (6.4-8.2)
[2024-07-23 15:40] LABS: Troponin I 651.9 ng/L (0.00-60.4)
[2024-07-24 14:40] LABS: Ferritin 362 ng/mL (26-388); Iron 27 ug/dL (65-175)
== END 2024-07-23 13:55 | disposition home or self-care (01) ==
LOC: CHSLAB 13:56
PROVIDERS: PCP Internal Medicine; Visit Provider Internal Medicine
DX: I50.9 Heart failure, unspecified (principal); R05.9 Cough, unspecified; R06.00 Dyspnea, unspecified; D64.9 Anemia, unspecified; I51.7 Cardiomegaly; I51.9 Heart disease, unspecified; J81.1 Chronic pulmonary edema; R91.8 Other nonspecific abnormal finding of lung field; M79.89 Other specified soft tissue disorders
CPT/HCPCS: 36415; 71046; 80053; 82550; 82553; 82728; 83540; 83880; 84484; 85025; 87637; 87651; 93970

== ENCOUNTER 2024-07-23 17:19 | Inpatient (IN) | payer MEDICARE, SELFPAY ==
[2024-07-23 17:26] VITALS: BP 118/74; PULSE 73; RESP 18; TEMP 36.4; O2SAT 100
--- NOTE | 2024-07-23 22:30 | ED.GENADULT ---
HPI - General Adult General Chief complaint: Shortness of Breath/Dyspnea Stated complaint: SOB sent from [place] due to large heart Time Seen by Provider: 07/23/24 21:59 History of Present Illness HPI narrative: Patient is a 69-year-old gentleman who presents emergency department with chief complaint of shortness of breath. The patient was recently admitted to the hospital at [facility] in [place] after having an NSTEMI. The patient apparently has been having increasing shortness of breath and had a echo that showed an EF of 30 to 35% the patient tested positive for COVID also had a chest x-ray that showed a right lower lobe infiltrate and a significantly elevated BNP. The patient's troponin is lower than what it was when he was at [facility] in the patient reports that he has been having increasing shortness of breath and increasing peripheral edema Related Data Home Medications Medication Instructions Recorded Confirmed Adult Aspirin EC Low Strength 81 mg PO DAILY 03/12/24 07/24/24 atorvastatin 80 mg tablet 80 mg PO DAILY 03/12/24 07/24/24 carvedilol 12.5 mg tablet 12.5 mg PO BID 03/12/24 07/24/24 celecoxib 200 mg capsule 200 mg PO DAILY 03/12/24 07/24/24 clopidogrel 75 mg tablet 75 mg PO DAILY 03/12/24 07/24/24 escitalopram oxalate 20 mg tablet 20 mg PO DAILY 03/12/24 07/24/24 ferrous sulfate 325 mg (65 mg 325 mg PO DAILY 03/12/24 07/24/24 iron) tablet (FeroSul) gabapentin 300 mg capsule 600 mg PO BID 03/12/24 07/24/24 lisinopril 40 mg tablet 40 mg PO DAILY 03/12/24 07/24/24 ranolazine 500 mg tablet,extended 500 mg PO BID 03/12/24 07/24/24 release,12 hr benzonatate 100 mg capsule 100 mg PO TID PRN Cough 07/24/24 07/24/24 blood-glucose sensor ([employer] G7 07/24/24 07/24/24 Sensor device) dorzolamide 22.3 mg-timolol 6.8 1 drp EACH EYE DAILY 07/24/24 07/24/24 mg/mL eye drops furosemide 40 mg tablet 40 mg PO DAILY 09/17/24 09/17/24 nitroglycerin 0.4 mg sublingual 0.4 mg sublingual PRN PRN Chest 07/24/24 07/24/24 tablet Pain nitroglycerin 0.4 mg/hr 1 patch transdermal DAILY 07/24/24 07/24/24 transdermal 24 hour patch tramadol 50 mg tablet 50 mg PO PRN PRN Pain 07/24/24 07/24/24 Allergies Allergy/AdvReac Type Severity Reaction Status Date / Time No Known Allergies Allergy Verified 07/23/24 17:21 Review of Systems Review of Systems: A 10 system review of systems was completed on the patient and is negative except for what is stated in the HPI. Nursing and ancillary documentation was reviewed. [facility] Past Medical History Medical History CAD (coronary artery disease) HLD (hyperlipidemia) HTN (hypertension) Family History Family History (Updated 07/24/24 @ 02:08 by Julia Ferraro RN) Father Arteriosclerosis Sibling Aneurysm Myocardial infarction Mother Congestive heart failure (CHF) Social History Social History Smoking packs per day: 1 Smoking cigarettes per day: 20.0 Smoking status: Former smoker Tobacco type: cigarettes Smoking end date: 11/07/99 Alcohol intake: current Drinks per week: 2 Substance use: never Substance use type: does not use Do You Feel Safe in your Home?: Yes Lack of Transportation: No Lack of Food: Never True Current Housing: I Have Housing Concerned About Future Housing: No Difficulty Paying Gas/Electric Bills: No Difficulty Paying for Meds: No Currently Unemployed: No Education: High School Diploma/GED Difficulty w/ Childcare or Family Care: No Spiritual care concerns: No Exam Narrative: GENERAL: Well-appearing, well-nourished, and in no acute distress. HEAD: Normocephalic, atraumatic. EYES: PERRLA and EOMI. ENT: Nares clear, no rhinorrhea or epistaxis. Mucous membranes moist. NECK: Supple. CHEST: Clear to auscultation. No respiratory distress
[2024-07-23 22:31] VITALS: O2SAT 99
[2024-07-23 22:32] VITALS: BP 121/58; PULSE 69; RESP 24; O2SAT 99
--- NOTE | 2024-07-23 22:37 | ECG_ITS ---
Test Date: 2024-07-23 22:41:47 Measurements Intervals [place] Rate: 71 P: -5 VA: 219 QRS: -57 QRSD: 114 T: 129 QT: 418 QTc: 456 Interpretive Statements SINUS RHYTHM WITH FIRST DEGREE AV BLOCK WITH OCCASIONAL VENTRICULAR PREMATURE COMPLEXES LEFT AXIS DEVIATION INCOMPLETE LEFT BUNDLE BRANCH BLOCK POOR R WAVE PROGRESSION ST-T WAVE ABNORMALITY IN HIGH LATERAL LEADS- CONSIDER ISCHEMIA BASELINE ARTIFACT- I, II, III, AVR, AVL, AVF, V3, V5 ABNORMAL ECG Compared to ECG 07/07/2024 11:56:52 ST-T WAVE ABNORMALITY NOW PRESENT Electronically Signed On 07-24-2024 05:43:54 CDT by Reese Moffett D.O.
[2024-07-23 22:38] LABS: Basophils Percent Auto 0.2 % (0.2-1.2); Eosinophils Absolute Auto 0.1 K/mm3 (0-0.3); Eosinophils Percent Auto 0.8 % (0-4.4); Hematocrit 31.7 % (42.0-52.0); Hemoglobin 10.3 g/dL (14.0-18.0); Immature Granulocyte Absolute 0.04 K/mm3 (0.00-0.031); Immature Granulocyte Percent A 0.4 % (0-0.5); Lymphocytes Absolute Auto 1.15 K/mm3 (0.9-3.2); Lymphocytes Percent Auto 12.4 % (18.3-44.2); Mean Corpuscular HGB Conc 32.5 g/dl (32-36); Mean Corpuscular Hemoglobin 32.8 pg (26-34); Mean Platelet Volume 12.4 fl (7.4-10.4); Monocytes Absolute Auto 0.7 K/mm3 (0.1-0.6); Monocytes Percent Auto 7.8 % (2.6-8.5); Neutrophils Absolute Auto 7.3 K/mm3 (1.3-6.7); Neutrophils Percent Auto 78.4 % (45.5-73.1); Platelet Count Result 310 k/mm3 (150-375); Red Blood Count 3.14 M/mm3 (4.6-6.20); Red Cell Distribution Width 13.4 % (11.5-14.5); White Blood Count 9.3 K/mm3 (4.5-10.0)
[2024-07-23 22:52] LABS: Partial Thromboplastin Time 25.6 Seconds (22.3-36.8)
[2024-07-23 22:56] LABS: Lactic Acid Reflex 1.3 mmol/L (0.7-2.0)
[2024-07-23 22:57] LABS: Alanine Aminotransferase 56 U/L (6-50); Albumin Level 3.9 g/dL (3.5-5.1); Alkaline Phosphatase 102 U/L (38-126); Anion Gap 10 mmol/L (4-12); Aspartate Amino Transferase 45 U/L (17-59); Bilirubin,Total 0.8 mg/dL (0.2-1.3); Blood Urea Nitrogen 29 mg/dL (9-20); Calcium 9.8 mg/dL (8.4-10.2); Carbon Dioxide 23 mmol/L (22-30); Chloride 99 mmol/L (98-107); Estimated CRCL calculation 60 ml/min; Estimated Glomerular Filt Rate 54; Glucose 174 mg/dL (65-110); Magnesium 2.2 mg/dL (1.6-2.3); Potassium 4.4 mmol/L (3.4-5.0); Sodium 132 mmol/L (137-145)
[2024-07-23] MEDS: FUROSEMIDE INJ 40 MG/4 ML VIAL IV PUSH (22:59)
[2024-07-23 23:01] VITALS: PULSE 72
[2024-07-23 23:02] VITALS: BP 126/74; PULSE 72; RESP 19; O2SAT 100
[2024-07-23 23:14] LABS: NT Pro B Type Natriuretic Pept 16800 pg/mL (19.9-100)
--- NOTE | 2024-07-23 23:23 | PC.NURSE ---
tried to call report at this time. the floor was unable to take report
--- NOTE | 2024-07-23 23:50 | ADMGEN ---
This patient, Will Collado, was admitted to IMU Room 214-01. Patient/family oriented to hospital policies and general routines including ID bracelet, bed and alarms, visiting hours, pain management, procedures, bathroom and other care routines, personal items, smoking policy, room service/diet, and visiting hours. Information on how to activate the Rapid Response Team has been discussed. Patient/Family are encouraged to report perceived risks to care and to ask questions if they do not understand what they are told or what they should do.
[2024-07-24] VITALS (26 sets, daily range): BP systolic 90–120; BP diastolic 41–69; PULSE 50–87; RESP 20–24; TEMP 36.4–37.3; O2SAT 93–100; BMI 29.5
[2024-07-24 00:02] LABS: Glucose Point of Care 150 mg/dl (65-105)
[2024-07-24] MEDS: AZITHROMYCIN 500 MG/NS 250 ML 500 MG/250 ML BAG 250 MG IVPB ×2 (00:34→22:07)
[2024-07-24] MEDS: IPRATROPIUM 0.5 MG/ALBUTEROL SULFATE 2.5 MG AMPUL.NEB 3 ML INHALATION ×2 (02:25→07:26)
--- NOTE | 2024-07-24 02:49 | ECG_ITS ---
Test Date: 2024-07-24 02:56:52 Measurements Intervals [place] Rate: 73 P: -5 MD: 191 QRS: -64 QRSD: 131 T: 118 QT: 396 QTc: 439 Interpretive Statements SINUS RHYTHM VENTRICULAR TRIGEMINY BORDERLINE AV CONDUCTION DELAY LEFT BUNDLE BRANCH BLOCK BASELINE ARTIFACT- II, III, AVR ABNORMAL ECG Compared to ECG 07/23/2024 22:41:47 VENTRICULAR TRIGEMINY NOW PRESENT LEFT BUNDLE BRANCH BLOCK NOW PRESENT Electronically Signed On 07-24-2024 05:50:59 CDT by Reese Moffett D.O.
--- NOTE | 2024-07-24 03:14 | PM.IMHP ---
H&P: HPI History of Present Illness Date/Time: 07/24/24 03:14 Chief Complaint: Shortness of breath Narrative: Mr. Collado is a pleasant 69-year-old male company by his daughter. The patient presents with shortness of breath. He has a history of NSTEMI discharged a week ago from [place] in [place] . He was transferred there from [place] with the diagnosis of NSTEMI. The patient did not have procedural intervention. He was given heparin drip and then discharged home. He had an echo which demonstrated EF of 30-35%. However he was not informed about any heart failure. Since discharge she has been feeling weak and short of breath. Also on the day of admission he has new lower leg swelling. at [place] he was found to have troponin 651, this is decreased from greater than 25,000 on 07/07/2024 when he 1st had the NSTEMI. Hemoglobin 9.4. Serum creatinine 1.58. proBNP 41055. He tested positive for COVID via PCR. Patient subsequently sent to [place] [facility] on 07/24/2024. Bilateral venous Dopplers of lower extremity did not demonstrate DVT, chest x-ray read as cardiomegaly with cardiac decompensation and pulmonary edema, focal pneumonia right lower lobe blood pressure 126/74, 93% O2 saturation on room air, respiratory rate 20, pulse rate 84, temperature 97.9? F. he was given Lasix 40 mg IV x1, ceftriaxone 1 g IV x1, azithromycin 500 mg IV x1. Patient been evaluated and he reported his symptoms resolving. Review of Systems Review of Systems: All systems reviewed & are unremarkable except as noted in HPI and below ( subjective) [facility] Past Medical History Medical History CAD (coronary artery disease) HLD (hyperlipidemia) HTN (hypertension) Family History Family History (Updated 07/24/24 @ 02:08 by Julia Ferraro RN) Father Arteriosclerosis Sibling Aneurysm Myocardial infarction Mother Congestive heart failure (CHF) Social History Social History Smoking packs per day: 1 Smoking cigarettes per day: 20.0 Smoking status: Former smoker Tobacco type: cigarettes Smoking end date: 01/01/00 Alcohol intake: current Drinks per week: 2 Substance use: never Substance use type: does not use Do You Feel Safe in your Home?: Yes Lack of Transportation: No Lack of Food: Never True Current Housing: I Have Housing Concerned About Future Housing: No Difficulty Paying Gas/Electric Bills: No Difficulty Paying for Meds: No Currently Unemployed: No Education: High School Diploma/GED Difficulty w/ Childcare or Family Care: No Spiritual care concerns: No Meds Home Medications and Allergies Home Medications Medication Instructions Recorded Confirmed Type Adult Aspirin EC Low Strength 81 mg PO DAILY 03/12/24 07/24/24 History atorvastatin 80 mg tablet 80 mg PO DAILY 03/12/24 07/24/24 History carvedilol 12.5 mg tablet 12.5 mg PO BID 03/12/24 07/24/24 History celecoxib 200 mg capsule 200 mg PO DAILY 03/12/24 07/24/24 History clopidogrel 75 mg tablet 75 mg PO DAILY 03/12/24 07/24/24 History escitalopram oxalate 20 mg tablet 20 mg PO DAILY 03/12/24 07/24/24 History ferrous sulfate 325 mg (65 mg 325 mg PO DAILY 03/12/24 07/24/24 History iron) tablet (FeroSul) gabapentin 300 mg capsule 600 mg PO BID 03/12/24 07/24/24 History lisinopril 40 mg tablet 40 mg PO DAILY 03/12/24 07/24/24 History ranolazine 500 mg tablet,extended 500 mg PO BID 03/12/24 07/24/24 History release,12 hr benzonatate 100 mg capsule 100 mg PO TID PRN Cough 07/24/24 07/24/24 History blood-glucose sensor ([employer] G7 07/24/24 07/24/24 History Sensor device) dorzolamide 22.3 mg-timolol 6.8 1 drp EACH EYE DAILY 07/24/24 07/24/24 History mg/mL eye drops furosemide 40 mg tablet 40 mg PO DAILY 07/24/24 07/24/24 History nitroglycerin 0.4 mg sublingual 0.4 mg sublin
[2024-07-24 05:18] LABS: Basophils Percent Auto 0.2 % (0.2-1.2); Eosinophils Percent Auto 0.3 % (0-4.4); Hematocrit 28.5 % (42.0-52.0); Hemoglobin 9.2 g/dL (14.0-18.0); Immature Granulocyte Absolute 0.06 K/mm3 (0.00-0.031); Immature Granulocyte Percent A 0.7 % (0-0.5); Lymphocytes Absolute Auto 0.89 K/mm3 (0.9-3.2); Lymphocytes Percent Auto 10.1 % (18.3-44.2); Mean Corpuscular HGB Conc 32.3 g/dl (32-36); Mean Corpuscular Hemoglobin 32.6 pg (26-34); Mean Corpuscular Volume 101.1 fl (80-100); Mean Platelet Volume 12.3 fl (7.4-10.4); Monocytes Absolute Auto 0.8 K/mm3 (0.1-0.6); Monocytes Percent Auto 8.5 % (2.6-8.5); Neutrophils Absolute Auto 7.1 K/mm3 (1.3-6.7); Neutrophils Percent Auto 80.2 % (45.5-73.1); Platelet Count Result 266 k/mm3 (150-375); Red Blood Count 2.82 M/mm3 (4.6-6.20); Red Cell Distribution Width 13.3 % (11.5-14.5); White Blood Count 8.8 K/mm3 (4.5-10.0)
[2024-07-24 05:33] LABS: Alanine Aminotransferase 41 U/L (6-50); Albumin Level 3.1 g/dL (3.5-5.1); Alkaline Phosphatase 78 U/L (38-126); Anion Gap 7 mmol/L (4-12); Aspartate Amino Transferase 41 U/L (17-59); Bilirubin,Total 0.8 mg/dL (0.2-1.3); Blood Urea Nitrogen 26 mg/dL (9-20); Calcium 9.3 mg/dL (8.4-10.2); Carbon Dioxide 23 mmol/L (22-30); Chloride 102 mmol/L (98-107); Estimated CRCL calculation 57 ml/min; Estimated Glomerular Filt Rate 60; Glucose 163 mg/dL (65-110); Magnesium 1.9 mg/dL (1.6-2.3); Potassium 4.4 mmol/L (3.4-5.0); Sodium 132 mmol/L (137-145)
[2024-07-24 06:04] LABS: Procalcitonin 0.1 ng/mL
[2024-07-24 06:06] LABS: MRSA (PCR) NOT DETECTED (NOT DETECTE)
[2024-07-24] MEDS: ATORVASTATIN 40 MG TABLET 80 MG PO (09:41)
[2024-07-24] MEDS: FUROSEMIDE INJ 40 MG/4 ML VIAL IV PUSH ×2 (09:41→22:07)
[2024-07-24] MEDS: ASPIRIN 81 MG CHEWABLE TABLET PO (09:41)
[2024-07-24] MEDS: FERROUS SULFATE 325 MG TABLET DR BY MOUTH (09:41)
[2024-07-24] MEDS: ESCITALOPRAM OXALATE 10 MG TABLET 20 MG PO (09:42)
[2024-07-24] MEDS: CLOPIDOGREL BISULFATE 75 MG TABLET PO (09:42)
[2024-07-24] MEDS: RANOLAZINE 500 MG TAB.ER.12H PO ×2 (09:42→22:07)
[2024-07-24] MEDS: lisinopriL 20 MG TABLET 40 MG PO (09:42)
[2024-07-24] MEDS: GABAPENTIN 300 MG CAPSULE 600 MG PO ×2 (09:42→16:26)
[2024-07-24] MEDS: carvediloL 12.5 MG TABLET PO ×2 (09:42→22:21)
[2024-07-24] MEDS: DORZOLAMIDE/TIMOLOL OPHTH SOL 10 ML BOTTLE 1 DROP EACH EYE (12:08)
--- NOTE | 2024-07-24 13:36 | PM.CNCAR ---
Assessment and Plan Assessment and plan (1) Acute decompensated heart failure: Code(s): I50.9 - Heart failure, unspecified Status: Acute Assessment and Plan: Continue IV Lasix for now, please monitor strict I/Os. Obtain records from [facility] [place]. (2) COVID: Code(s): U07.1 - COVID-19 Status: Acute Assessment and Plan: Management as per primary team. (3) Pneumonia: Code(s): J18.9 - Pneumonia, unspecified organism Status: Acute Assessment and Plan: On antibiotics as per primary team. (4) CAD (coronary artery disease): Code(s): I25.10 - Atherosclerotic heart disease of [place] coronary artery without angina pectoris Status: Acute Assessment and Plan: Continue ASA, Plavix, high intensity statin, beta valerie, Ranolazine (5) HTN (hypertension): Code(s): I10 - Essential (primary) hypertension Status: Acute Assessment and Plan: Continue Coreg, Lisinopril (6) HLD (hyperlipidemia): Code(s): E78.5 - Hyperlipidemia, unspecified Status: Acute Assessment and Plan: Continue high intensity statin History of Present Illness History of Present Illness Consult date/time: 07/24/24 13:36 Requesting physician: Jamshid Woods MD Consult reason: Other (CHF, elevated troponin, recent NSTEMI) Reason For Visit: Pneumonia, COVID-19, CHF, Elevated troponin Narrative: This is a 69 year old male with CAD s/p CABG and stents who was recently discharged form [facility] in [place], [place] after a hospitalization for NSTEMI. Patient was seen at [place] ED on 07/07 for chest pain. Troponin was greater than 25,000. He was transferred to [facility]. Patient receives all of his cardiac care with [facility] in [place], [place]. He states he was treated with Heparin drip, did not undergo cardiac catheterization and was treated medically. Had an echocardiogram done there but does not remember the results of it. He presented to [place] ER on 07/23 with shortness of breath. Workup here shows: Hgb of 9.2. Hgb was 12.5 back in March 2024. Troponins are 1.140, 1.050 NT pro BNP of 17,092 COVID test is positive CXR with cardiomegaly with cardiac decompensation and pulmonary edema. Pneumonitis is not excluded. Focal pneumonia in the right lower lobe is highly suggestive. Blunting of the costophrenic angle which may indicate atelectasis versus minimal effusion. EKGs with sinus rhythm, LBBB, PVCs Review of Systems Review of Systems: All systems reviewed & are unremarkable except as noted in HPI and below (HPI) [facility] Past Medical History Medical History CAD (coronary artery disease) HLD (hyperlipidemia) HTN (hypertension) Family History Family History Father Arteriosclerosis Sibling Aneurysm Myocardial infarction Mother Congestive heart failure (CHF) Social History Social History Smoking packs per day: 1 Smoking cigarettes per day: 20.0 Smoking status: Former smoker Tobacco type: cigarettes Smoking end date: 11/07/99 Alcohol intake: current Drinks per week: 2 Substance use: never Substance use type: does not use Do You Feel Safe in your Home?: Yes Lack of Transportation: No Lack of Food: Never True Current Housing: I Have Housing Concerned About Future Housing: No Difficulty Paying Gas/Electric Bills: No Difficulty Paying for Meds: No Currently Unemployed: No Education: High School Diploma/GED Difficulty w/ Childcare or Family Care: No Spiritual care concerns: No Meds Home Medications and Allergies Home Medications Medication Instructions Recorded Confirmed Type Adult Aspirin EC Low Strength 81 mg PO DAILY 03/12/24 07/24/24 History atorvastatin 80 mg tablet 80 mg PO DA
[2024-07-24] MEDS: ALBUTEROL SULFATE (*SP) AEROSOL 1 PUFF 2 PUFF INHALATION ×2 (13:43→20:24)
--- NOTE | 2024-07-24 15:42 | PM.IMPN ---
Progress Note: A&P Assessment and Plan (1) Acute decompensated heart failure: Code(s): I50.9 - Heart failure, unspecified Status: Acute Assessment and Plan: Patient presents with shortness of breath. He had NSTEMI and discharged a week ago from [facility] in [place]. No procedural intervention performed. Echo with EF of 30-35%. Home with Lasix 20mg daily. Since discharge, he has been feeling weak, has pedal edema and short of breath. Hgb 9.4. Cr 1.6. proBNP 58017. COVID positive via PCR. Patient transfered to [place] Bilateral venous Dopplers of lower extremity did not demonstrate DVT CXR showing cardiomegaly with cardiac decompensation and pulmonary edema, focal pneumonia right lower lobe He was treated with Lasix 40 mg IV once and started on Lasix IV Low EF probably likely related to recent NSTEMI. Cardiology consulted. Continue with 40 mg IV Lasix b.i.d.. Continue Coreg and Lisinopril. Add Empagliflozin and Spironolactone if EF depressed Continue to monitor daily weights, strict intake and output and Cr. Records requested from [facility] (2) COVID: Code(s): U07.1 - COVID-19 Status: Acute Assessment and Plan: Patient diagnosed with COVID at [facility]. His symptoms started more than 5 days ago. Patient does not require oxygen. The risk versus benefits of remdesivir was discussed by admitting provider and he and the daughter elect to forego for now. Continue to monitor for oxygen needs and inflammatory markers if needed. (3) Pneumonia: Code(s): J18.9 - Pneumonia, unspecified organism Status: Acute Assessment and Plan: CXR showing RLL infiltrate. Consider atelectasis vs PNA. Started on Ceftriaxone and azithromycin. MRSA PCR negative. Sputum culture ordered. Blood cultures pending. Continue IV abx for now (4) CAD (coronary artery disease): Code(s): I25.10 - Atherosclerotic heart disease of [place] coronary artery without angina pectoris Status: Acute Assessment and Plan: Patient had a recent NSTEMI. Troponin x2 elevated here but lower than previously. He has no chest pain. No new acute ischemia identified on EKG. Continue to monitor symptomatology. Continue ASA, Coreg and Lipitor (5) HTN (hypertension): Code(s): I10 - Essential (primary) hypertension Status: Acute Assessment and Plan: Patient's blood pressure was reviewed on 07/24 Blood pressure remains well controlled. Will continue current medications. (6) Diabetes mellitus: Code(s): E11.9 - Type 2 diabetes mellitus without complications Status: Acute Assessment and Plan: The patient's blood glucose was reviewed on 07/24 Glucose was good this morning. Nurse states patient in on SQ insulin at home but medication list not updated yet. Start AccuCheks covering with sliding scale. Hypoglycemia protocol will beavailable as needed. Continue to monitor. Check A1c Plan CKD - Cr runs 1.2-1.5 range normally. He is within his baseline. Monitor. Anemia - Hgb was normal in March but lower recently in 9-10 range. Ferritin normal but iron low. TSH normal in March. Check B12, folate and iron saturation. Hyponatremia - Na 132 now. Probably related to CHF. Follow. DVT prophylaxis - SCDs. Code status - full code. Subjective Date/time seen: 07/24/24 15:42 Interval history: 69yo male with CAD and recent NSTEMI, LV dysfxn (EF 30-35%), HTN, HLD and DM here for shortness of breath. He tested positive for COVID here. Cough productive of yellow sputum. He has orthopnea. He has been compliant with Lasix 20mg daily that was started last month at last discharge. C about 1 year ago and stress test performed earlier this month. Exam Narrative: AF 99.1 103/69 60 20 98% ra Gen - NARD Chest - CTA bilaterally, nml RR CV - RRR S1/S2. Tele showing NSR with PVCs Abd - Soft, NT/ND, Positive BS Ext - 1+ pedal edema Psych - Nml mood and
[2024-07-24 16:20] LABS: Glucose Point of Care 209 mg/dl (65-105)
[2024-07-24] MEDS: INSULIN ASPART (*BKC) 100 UNITS/ML SUB-Q (16:26)
[2024-07-24 20:29] LABS: Glucose Point of Care 213 mg/dl (65-105)
[2024-07-25] VITALS (16 sets, daily range): BP systolic 92–132; BP diastolic 57–111; PULSE 51–78; RESP 18–22; TEMP 36–37.1; O2SAT 95–100
--- NOTE | 2024-07-25 | ECHO_ITS ---
Patient Info Name: Will Collado Age: 69 years : 1955 Gender: Male Ht: 72 in Wt: 222 lbs BSA: 2.29 m2 HR: 71 bpm BP: 97 / 57 mmHg Heart Rhythm: Sinus Rhythm Technical Quality: Good Exam Date: 07/25/2024 1:08 PM Exam Location: Echo Lab Patient Status: Inpatient Admit Date: 07/24/2024 Staff Ordering Physician: Tim Fatima MD (kody/liza) Inspector [employer]: Sixto Luna RDCS Attending Provider: Noni Mendez MD Referring Physician: Kushal BASS; Exam Type: CA echo doppler color flow Study Info Indications - chf Complete two-dimensional, color flow and Doppler transthoracic echocardiogram is performed with contrast to opacify the left ventricle and to improve the deliniation of the left ventricle endocardial borders. Summary 1. Left ventricular chamber dimension is moderately enlarged. 2. Left ventricular systolic function is moderately reduced, estimated at 30-35%. 3. Right ventricular chamber dimension is moderately enlarged. 4. Right ventricular systolic function is normal. 5. Left atrial chamber dimension is moderately enlarged. 6. Right atrial chamber dimension is moderately enlarged. 7. There is mild to moderate mitral valve regurgitation. 8. There is mild tricuspid valve regurgitation. Left Ventricle Left ventricular chamber dimension is moderately enlarged. Left ventricular systolic function is moderately reduced, estimated at 30-35%. There is no increased left ventricular wall thickness. The left ventricular diastolic function is abnormal. Right Ventricle Right ventricular chamber dimension is moderately enlarged. Right ventricular systolic function is normal. Left Atria Left atrial chamber dimension is moderately enlarged. Right Atria Right atrial chamber dimension is moderately enlarged. Atrial Septum Intact interatrial septum visualized by color flow imaging. Aortic Valve The aortic valve is probable trileaflet. There is no aortic valve stenosis. There is no aortic valve regurgitation. There is moderate aortic valve calcification. Pulmonic Valve The pulmonic valve is not well visualized. There is trace pulmonic regurgitation. Mitral Valve There is mild to moderate mitral valve regurgitation. The mitral valve annulus is mildly calcified. Tricuspid Valve There is mild tricuspid valve regurgitation. Pericardium/Pleural There is no pericardial effusion. Inferior Vena Cava Normal inferior vena cava with <50% collapse upon inspiration consistent with elevated right atrial pressure, 8 mmHg. Aorta The aortic root size at the sinus of Valsalva is normal. Left Ventricular Outflow Tract Name Value Normal LVOT 2D LVOT Diameter 2.0 cm LVOT Doppler LVOT Peak Velocity 129 cm/s LVOT Peak Gradient 7 mmHg LVOT Mean Gradient 4 mmHg LVOT VTI 28 cm LVOT VTI/AV VTI Ratio 1.0 LVOT Stroke Volume 91 ml LVOT CO 5.6 l/min LVOT CI 2.4 l/min/m2 Pulmonic Valve
[2024-07-25 05:35] LABS: Basophils Percent Auto 0.4 % (0.2-1.2); Eosinophils Absolute Auto 0.1 K/mm3 (0-0.3); Hemoglobin 9.7 g/dL (14.0-18.0); Immature Granulocyte Absolute 0.03 K/mm3 (0.00-0.031); Immature Granulocyte Percent A 0.4 % (0-0.5); Lymphocytes Absolute Auto 1.38 K/mm3 (0.9-3.2); Lymphocytes Percent Auto 19.4 % (18.3-44.2); Mean Corpuscular HGB Conc 32.3 g/dl (32-36); Mean Corpuscular Hemoglobin 32.9 pg (26-34); Mean Corpuscular Volume 101.7 fl (80-100); Mean Platelet Volume 12.9 fl (7.4-10.4); Monocytes Absolute Auto 0.7 K/mm3 (0.1-0.6); Monocytes Percent Auto 9.4 % (2.6-8.5); Neutrophils Percent Auto 69.4 % (45.5-73.1); Platelet Count Result 249 k/mm3 (150-375); Red Blood Count 2.95 M/mm3 (4.6-6.20); Red Cell Distribution Width 13.4 % (11.5-14.5); White Blood Count 7.1 K/mm3 (4.5-10.0)
[2024-07-25 05:50] LABS: Hemoglobin A1C 7.3 % (<5.7)
[2024-07-25 05:54] LABS: Alanine Aminotransferase 38 U/L (6-50); Albumin Level 3.6 g/dL (3.5-5.1); Alkaline Phosphatase 76 U/L (38-126); Anion Gap 9 mmol/L (4-12); Aspartate Amino Transferase 37 U/L (17-59); Blood Urea Nitrogen 37 mg/dL (9-20); Calcium 9.3 mg/dL (8.4-10.2); Carbon Dioxide 25 mmol/L (22-30); Chloride 98 mmol/L (98-107); Estimated CRCL calculation 46 ml/min; Estimated Glomerular Filt Rate 46; Glucose 173 mg/dL (65-110); Magnesium 2.1 mg/dL (1.6-2.3); Phosphorus 3.2 mg/dL (2.5-4.5); Potassium 4.2 mmol/L (3.4-5.0); Sodium 132 mmol/L (137-145)
[2024-07-25 06:05] LABS: Iron 52 ug/dL (49-181)
[2024-07-25 06:15] LABS: Percent Iron Saturation 24 % (20-50)
[2024-07-25 06:50] LABS: Folic Acid 12.9 ng/mL (2.76->20)
[2024-07-25 08:17] LABS: Glucose Point of Care 199 mg/dl (65-105)
[2024-07-25] MEDS: ALBUTEROL SULFATE (*SP) AEROSOL 1 PUFF 2 PUFF INHALATION ×3 (08:20→21:04)
[2024-07-25] MEDS: DORZOLAMIDE/TIMOLOL OPHTH SOL 10 ML BOTTLE 1 DROP EACH EYE (09:07)
[2024-07-25] MEDS: FUROSEMIDE INJ 40 MG/4 ML VIAL IV PUSH (09:08)
[2024-07-25] MEDS: RANOLAZINE 500 MG TAB.ER.12H PO ×2 (09:08→20:58)
[2024-07-25] MEDS: GABAPENTIN 300 MG CAPSULE 600 MG PO ×2 (09:08→16:43)
[2024-07-25] MEDS: carvediloL 12.5 MG TABLET PO ×2 (09:08→20:58)
[2024-07-25] MEDS: lisinopriL 20 MG TABLET 40 MG PO (09:08)
[2024-07-25] MEDS: ESCITALOPRAM OXALATE 10 MG TABLET 20 MG PO (09:08)
[2024-07-25] MEDS: FERROUS SULFATE 325 MG TABLET DR BY MOUTH (09:09)
[2024-07-25] MEDS: CLOPIDOGREL BISULFATE 75 MG TABLET PO (09:09)
[2024-07-25] MEDS: ASPIRIN 81 MG CHEWABLE TABLET PO (09:09)
[2024-07-25] MEDS: ATORVASTATIN 40 MG TABLET 80 MG PO (09:09)
[2024-07-25] MEDS: IRON SUCROSE COMPLEX 300 MG in SODIUM CHLORIDE 0.9% IV 250 ML 173.39 MG IVPB (12:22)
[2024-07-25] MEDS: INSULIN ASPART (*BKC) 100 UNITS/ML SUB-Q ×2 (12:22→16:43)
--- NOTE | 2024-07-25 12:36 | PM.PNCARD ---
Progress Note: A&P Assessment and Plan (1) Acute decompensated heart failure: Code(s): I50.9 - Heart failure, unspecified Status: Acute Assessment and Plan: Continue IV Lasix for now, please monitor strict I/Os. Obtain records from [facility]. Records still pending. Will obtain an echocardiogram here. (2) COVID: Code(s): U07.1 - COVID-19 Status: Acute Assessment and Plan: Management as per primary team. (3) Pneumonia: Code(s): J18.9 - Pneumonia, unspecified organism Status: Acute Assessment and Plan: On antibiotics as per primary team. (4) CAD (coronary artery disease): Code(s): I25.10 - Atherosclerotic heart disease of [place] coronary artery without angina pectoris Status: Acute Assessment and Plan: Continue ASA, Plavix, high intensity statin, beta valerie, Ranolazine (5) HTN (hypertension): Code(s): I10 - Essential (primary) hypertension Status: Acute Assessment and Plan: Continue Coreg, Lisinopril (6) HLD (hyperlipidemia): Code(s): E78.5 - Hyperlipidemia, unspecified Status: Acute Assessment and Plan: Continue high intensity statin Subjective Date/time seen: 07/25/24 12:36 Interval history: Reason for visit: CHF HPI: This is a 69 year old male with CAD s/p CABG and stents who was recently discharged form [facility] in [place], [place] after a hospitalization for NSTEMI. Patient was seen at [place] ED on 07/07 for chest pain. Troponin was greater than 25,000. He was transferred to [facility]. Patient receives all of his cardiac care with [facility] in [place], [place]. He states he was treated with Heparin drip, did not undergo cardiac catheterization and was treated medically. Had an echocardiogram done there but does not remember the results of it. He presented to [facility] ER on 07/23 with shortness of breath. Workup here shows: Hgb of 9.2. Hgb was 12.5 back in March 2024. Troponins are 1.140, 1.050 NT pro BNP of 17,092 COVID test is positive CXR with cardiomegaly with cardiac decompensation and pulmonary edema. Pneumonitis is not excluded. Focal pneumonia in the right lower lobe is highly suggestive. Blunting of the costophrenic angle which may indicate atelectasis versus minimal effusion. EKGs with sinus rhythm, LBBB, PVCs Date of service 07/25: Feeling better. Still with swelling in the legs. He reports occasional wheezing. Review of Systems Review of Systems: All systems reviewed & are unremarkable except as noted in HPI and below (HPI) Exam Const: General: comfortable and no acute distress HENMT: Mouth: Yes moist mucous membranes Eyes: General: appearance normal, both eyes and all related structures Sclera: sclerae normal Resp: Effort & Inspection: normal respiratory effort Other: Decreased breath sounds at the bases Cardio: Rate: regular rate Rhythm: regular rhythm Other: + Bilateral lower extremity edema Skin: General skin exam: normal color Neuro: Speech: normal speech Psych: Mental Status: mental status grossly normal Affect: normal affect Objective Data Vital Signs Vital Signs: Vital Signs - 24 hr 07/24/24 13:43 07/24/24 14:00 07/24/24 16:00 Temperature 36.5 C Pulse Rate 60 60 50 L Respiratory Rate 20 20 Blood Pressure 90/51 L Pulse Oximetry 96 Oxygen Delivery Fraction of Inspired Oxygen 07/24/24 16:00 07/24/24 16:00 07/24/24 18:00 Temperature Pulse Rate 52 L 52 L 53 L Respiratory Rate Blood Pressure Pulse Oximetry 96 Oxygen Delivery Room Air Fraction of Inspired Oxygen 07/24/24 20:28 07/24/24 20:28 07/24/24 20:57 Temperature 36.8 C Pulse Rate 71 50 L Respiratory Rate 20 20 Blood Pressure 90/41 L Pulse Oximetry 96 97 Oxygen Delivery Room Air Fraction of Inspired Oxygen 07/24/24 22:21 07/24/24 22:15 07/24/24 20:00 Temperature Pulse Rate 64 64
[2024-07-25 12:38] LABS: Glucose Point of Care 248 mg/dl (65-105)
[2024-07-25] MEDS: PERFLUTREN LIPID MICROSPHERES 1.5 ML VIAL DILUTED TO 10 ML TOTAL VOLUME IV PUSH (13:15)
--- NOTE | 2024-07-25 14:32 | IVDEFINITY ---
Prior to administration of IV Definity the patient was educated on the risks and benefits of the imaging enhancing agent including potential adverse side effects. The patient verbalized understanding. Allergies were verified. No exclusion criteria were identified and at least one of the following inclusion criteria were met: 1) physician request, 2) patient technically difficult to image (per the [place] [employer]chocardi[employer] guidelines of two or more segments not discernable within the apical view), or 3) questionable left ventricular function. ?
--- NOTE | 2024-07-25 16:30 | PC.NURSE ---
On 07/25/24, the student, Renetta Gutierrez [facility] , provided care and completed [facility] documentation on this patient. I have reviewed the student's documentation and agree with the findings.
[2024-07-25 16:56] LABS: Glucose Point of Care 264 mg/dl (65-105)
--- NOTE | 2024-07-25 19:00 | PM.IMPN ---
Progress Note: A&P Assessment and Plan (1) Acute decompensated heart failure: Code(s): I50.9 - Heart failure, unspecified Status: Acute Assessment and Plan: Patient presents with shortness of breath. He had NSTEMI and discharged a week ago from [facility] in [place]. No procedural intervention performed. Echo with EF of 30-35%. Home with Lasix 20mg daily. Since discharge, he has been feeling weak, has pedal edema and short of breath. Hgb 9.4. Cr 1.6. proBNP 34274. COVID positive via PCR. Patient transfered to [facility] Bilateral venous Dopplers of lower extremity did not demonstrate DVT CXR showing cardiomegaly with cardiac decompensation and pulmonary edema, focal pneumonia right lower lobe He was treated with Lasix 40 mg IV once and started on Lasix IV Low EF probably likely related to recent NSTEMI. Cardiology consulted. Continue with 40 mg IV Lasix b.i.d.. Continue Coreg and Lisinopril. Add Empagliflozin and Spironolactone if EF depressed Continue to monitor daily weights, strict intake and output and Cr. Records requested from [facility] 2D echo done which showed reduced left systolic function with estimated EF 30-35% (2) COVID: Code(s): U07.1 - COVID-19 Status: Acute Assessment and Plan: Patient diagnosed with COVID at [facility]. His symptoms started more than 5 days ago. Patient does not require oxygen. The risk versus benefits of remdesivir was discussed by admitting provider and he and the daughter elect to forego for now. Continue to monitor for oxygen needs and inflammatory markers if needed. (3) Pneumonia: Code(s): J18.9 - Pneumonia, unspecified organism Status: Acute Assessment and Plan: CXR showing RLL infiltrate. Consider atelectasis vs PNA. Started on Ceftriaxone and azithromycin. MRSA PCR negative. Sputum culture ordered. Blood cultures pending. Continue IV abx for now (4) CAD (coronary artery disease): Code(s): I25.10 - Atherosclerotic heart disease of [place] coronary artery without angina pectoris Status: Acute Assessment and Plan: Patient had a recent NSTEMI. Troponin x2 elevated here but lower than previously. He has no chest pain. No new acute ischemia identified on EKG. Continue to monitor symptomatology. Continue ASA, Coreg and Lipitor 2D echo done which showed reduced left systolic function with estimated EF 30-35% Follow-up closely as per Cardiology (5) HTN (hypertension): Code(s): I10 - Essential (primary) hypertension Status: Acute Assessment and Plan: Patient's blood pressure was reviewed on 07/24 Blood pressure remains well controlled. Will continue current medications. (6) Diabetes mellitus: Code(s): E11.9 - Type 2 diabetes mellitus without complications Status: Acute Assessment and Plan: The patient's blood glucose was reviewed on 07/24 Glucose was good this morning. Nurse states patient in on SQ insulin at home but medication list not updated yet. Start AccuCheks covering with sliding scale. Hypoglycemia protocol will beavailable as needed. Continue to monitor. Check A1c (7) Iron deficiency anemia: Code(s): D50.9 - Iron deficiency anemia, unspecified Status: Acute Assessment and Plan: Patient has labs consistent with iron deficiency anemia Patient started on IV Venofer 300 mg daily for 3 days Patient would need to be discharged on ferrous sulfate 324 mg orally bid daily Plan CKD - Cr runs 1.2-1.5 range normally. He is within his baseline. Monitor. Anemia - Hgb was normal in March but lower recently in 9-10 range. Ferritin normal but iron low. TSH normal in March. Patient started on IV Venofer for iron deficiency anemia Hyponatremia - Na 132 now. Probably related to CHF. Follow. DVT prophylaxis - SCDs. Code status - full code. ? Patient seen and examined at bedside during my morning rounds ? Collaborated with patient's
[2024-07-25] MEDS: AZITHROMYCIN 500 MG/NS 250 ML 500 MG/250 ML BAG 250 MG IVPB (20:59)
[2024-07-25 21:21] LABS: Glucose Point of Care 179 mg/dl (65-105)
[2024-07-25] MEDS: ACETAMINOPHEN 325 MG TABLET 650 MG PO (23:36)
[2024-07-26] VITALS (10 sets, daily range): BP systolic 104–117; BP diastolic 54–66; PULSE 51–74; RESP 16–20; TEMP 36.4–37; O2SAT 96–100
[2024-07-26 05:34] LABS: Basophils Percent Auto 0.3 % (0.2-1.2); Eosinophils Absolute Auto 0.1 K/mm3 (0-0.3); Eosinophils Percent Auto 1.7 % (0-4.4); Hematocrit 29.1 % (42.0-52.0); Hemoglobin 9.2 g/dL (14.0-18.0); Immature Granulocyte Absolute 0.02 K/mm3 (0.00-0.031); Immature Granulocyte Percent A 0.3 % (0-0.5); Lymphocytes Absolute Auto 1.03 K/mm3 (0.9-3.2); Lymphocytes Percent Auto 17.1 % (18.3-44.2); Mean Corpuscular HGB Conc 31.6 g/dl (32-36); Mean Corpuscular Hemoglobin 32.4 pg (26-34); Mean Corpuscular Volume 102.5 fl (80-100); Monocytes Absolute Auto 0.7 K/mm3 (0.1-0.6); Monocytes Percent Auto 10.8 % (2.6-8.5); Neutrophils Absolute Auto 4.2 K/mm3 (1.3-6.7); Neutrophils Percent Auto 69.8 % (45.5-73.1); Platelet Count Result 227 k/mm3 (150-375); Red Blood Count 2.84 M/mm3 (4.6-6.20); Red Cell Distribution Width 13.4 % (11.5-14.5)
[2024-07-26 06:25] LABS: Anion Gap 8 mmol/L (4-12); Blood Urea Nitrogen 37 mg/dL (9-20); Calcium 9.4 mg/dL (8.4-10.2); Carbon Dioxide 25 mmol/L (22-30); Chloride 100 mmol/L (98-107); Estimated CRCL calculation 53 ml/min; Estimated Glomerular Filt Rate 54; Glucose 185 mg/dL (65-110); Potassium 4.9 mmol/L (3.4-5.0); Sodium 133 mmol/L (137-145)
[2024-07-26 06:36] LABS: Troponin I 0.638 ng/mL (0.000-0.034)
[2024-07-26] MEDS: ALBUTEROL SULFATE (*SP) AEROSOL 1 PUFF 2 PUFF INHALATION ×2 (07:44→13:57)
[2024-07-26] MEDS: GABAPENTIN 300 MG CAPSULE 600 MG PO (08:10)
[2024-07-26] MEDS: ATORVASTATIN 40 MG TABLET 80 MG PO (08:10)
[2024-07-26] MEDS: CLOPIDOGREL BISULFATE 75 MG TABLET PO (08:11)
[2024-07-26] MEDS: ZINC SULFATE 220 MG CAPSULE PO (08:11)
[2024-07-26] MEDS: lisinopriL 20 MG TABLET 40 MG PO (08:11)
[2024-07-26] MEDS: carvediloL 12.5 MG TABLET PO (08:12)
[2024-07-26] MEDS: RANOLAZINE 500 MG TAB.ER.12H PO (08:12)
[2024-07-26] MEDS: THERAPEUTIC MULTIVITAMINS/MINERALS TAB (*BKC) 1 TABLET PO (08:12)
[2024-07-26] MEDS: ESCITALOPRAM OXALATE 10 MG TABLET 20 MG PO (08:12)
[2024-07-26] MEDS: CHOLECALCIFEROL 1,000 UNITS TABLET 1000 UNITS PO (08:12)
[2024-07-26] MEDS: DORZOLAMIDE/TIMOLOL OPHTH SOL 10 ML BOTTLE 1 DROP EACH EYE (08:12)
[2024-07-26] MEDS: ASPIRIN 81 MG CHEWABLE TABLET PO (08:12)
[2024-07-26] MEDS: ASCORBIC ACID 500 MG TABLET PO (08:12)
[2024-07-26] MEDS: FERROUS SULFATE 325 MG TABLET DR BY MOUTH (08:12)
[2024-07-26] MEDS: FUROSEMIDE INJ 40 MG/4 ML VIAL IV PUSH (08:13)
[2024-07-26 08:14] LABS: Glucose Point of Care 185 mg/dl (65-105)
--- NOTE | 2024-07-26 11:07 | PM.PNCARD ---
Progress Note: A&P Assessment and Plan (1) Acute decompensated heart failure: Code(s): I50.9 - Heart failure, unspecified Status: Acute Assessment and Plan: Echocardiogram shows LVEF 30-35%. Diuresed well with IV Lasix, okay to transition back to PO Lasix. Continue Coreg. Continue Lisinopril. Will not uptitrate heart failure GDMT at this time as blood pressures in the 90s systolics. 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 (2) COVID: Code(s): U07.1 - COVID-19 Status: Acute Assessment and Plan: Management as per primary team. (3) Pneumonia: Code(s): J18.9 - Pneumonia, unspecified organism Status: Acute Assessment and Plan: On antibiotics as per primary team. (4) CAD (coronary artery disease): Code(s): I25.10 - Atherosclerotic heart disease of [place] coronary artery without angina pectoris Status: Acute Assessment and Plan: Continue ASA, Plavix, high intensity statin, beta valerie, Ranolazine (5) HTN (hypertension): Code(s): I10 - Essential (primary) hypertension Status: Acute Assessment and Plan: Continue Coreg, Lisinopril (6) HLD (hyperlipidemia): Code(s): E78.5 - Hyperlipidemia, unspecified Status: Acute Assessment and Plan: Continue high intensity statin Plan Okay for discharge from my standpoint. 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 Subjective Date/time seen: 07/26/24 11:07 Interval history: Reason for visit: CHF HPI: This is a 69 year old male with CAD s/p CABG and stents who was recently discharged form [facility] in [place], [place] after a hospitalization for NSTEMI. Patient was seen at [facility] ED on 07/07 for chest pain. Troponin was greater than 25,000. He was transferred to [facility]. Patient receives all of his cardiac care with [facility] in [place], [place]. He states he was treated with Heparin drip, did not undergo cardiac catheterization and was treated medically. Had an echocardiogram done there but does not remember the results of it. He presented to [facility] ER on 07/23 with shortness of breath. Workup here shows: Hgb of 9.2. Hgb was 12.5 back in March 2024. Troponins are 1.140, 1.050 NT pro BNP of 17,092 COVID test is positive CXR with cardiomegaly with cardiac decompensation and pulmonary edema. Pneumonitis is not excluded. Focal pneumonia in the right lower lobe is highly suggestive. Blunting of the costophrenic angle which may indicate atelectasis versus minimal effusion. EKGs with sinus rhythm, LBBB, PVCs Date of service 07/25: Feeling better. Still with swelling in the legs. He reports occasional wheezing. Date of service 07/26: Feeling better. Wants to go home today. Review of Systems Review of Systems: All systems reviewed & are unremarkable except as noted in HPI and below (HPI) Exam Const: General: comfortable and no acute distress HENMT: Mouth: Yes moist mucous membranes Eyes: General: appearance normal, both eyes and all related structures Sclera: sclerae normal Resp: Effort & Inspection: normal respiratory effort Cardio: Rate: regular rate Rhythm: regular rhythm Other: + Mild bilateral lower extremity edema Skin: General skin exam: normal color Neuro: Speech: normal speech Psych: Mental Status: mental status grossly normal Affect: normal affect Objective Data Vital Signs Vital Signs: Vital Signs - 24 hr 07/25/24 12:00 07/25/24 12:07/25/24 14:00 Temperature Pulse Rate 51 L 51 L 66 Respiratory Rate 18 Blood Pressure Pulse Oximetry 95 Oxygen Delivery Room Air Fraction of Inspired Oxygen 07/25/24 16:00 07/25/24 16:00 07/25/24 16:00 Temperature 36.3 C L Pulse Rate 59 L 63 63 Respiratory Rate 22 H 22 H Blood Pressure 132/111 H Pulse Oximetry 100 100 Oxygen Delivery Room Air Fraction of Inspired Oxygen 07/25/24 18:00 07/25/24 20:00
[2024-07-26] MEDS: IRON SUCROSE COMPLEX 300 MG in SODIUM CHLORIDE 0.9% IV 250 ML 173.39 MG IVPB (11:57)
[2024-07-26] MEDS: INSULIN ASPART (*BKC) 100 UNITS/ML SUB-Q (12:00)
[2024-07-26 12:13] LABS: Glucose Point of Care 261 mg/dl (65-105)
--- NOTE | 2024-07-26 13:29 | PM.DS ---
DS: Admitting Diagnosis Discharge Date 07/26/2024: Admitting Diagnosis Assessment and plan (1) Acute decompensated heart failure: Code(s): I50.9 - Heart failure, unspecified Status: Acute (2) COVID: Code(s): U07.1 - COVID-19 Status: Acute (3) Pneumonia: Code(s): J18.9 - Pneumonia, unspecified organism Status: Acute Plan Mr. Collado is a pleasant 69-year-old male company by his daughter. The patient presents with shortness of breath. He has a history of NSTEMI discharged a week ago from [facility] in [place] . He was transferred there from [place] with the diagnosis of NSTEMI. The patient did not have procedural intervention. He was given heparin drip and then discharged home. He had an echo which demonstrated EF of 30-35%. However he was not informed about any heart failure. Since discharge she has been feeling weak and short of breath. Also on the day of admission he has new lower leg swelling. at [facility] he was found to have troponin 651, this is decreased from greater than 25,000 on 07/07/2024 when he 1st had the NSTEMI. Hemoglobin 9.4. Serum creatinine 1.58. proBNP 56097. He tested positive for COVID via PCR. Patient subsequently sent to [facility] on 07/24/2024. Bilateral venous Dopplers of lower extremity did not demonstrate DVT, chest x-ray read as cardiomegaly with cardiac decompensation and pulmonary edema, focal pneumonia right lower lobe blood pressure 126/74, 93% O2 saturation on room air, respiratory rate 20, pulse rate 84, temperature 97.9? F. he was given Lasix 40 mg IV x1, ceftriaxone 1 g IV x1, azithromycin 500 mg IV x1. Patient been evaluated and he reported his symptoms resolving. ----- Bacterial pneumonia - right lower lobe infiltrate. Ceftriaxone and azithromycin. Sputum culture ordered. Blood cultures pending. Check MRSA PCR. COVID pneumonia - symptoms started more than 5 days ago. Patient does not require oxygen. Discussed the risk versus benefits of remdesivir and he in the daughter elect to forego for now. Continue to monitor for oxygen needs and inflammatory markers if needed. acute decompensated systolic heart failure - Likely related to his recent NSTEMI. Cardiology consultation placed for the morning. Received 40 mg IV Lasix x1. Continue with 40 mg IV Lasix b.i.d.. Daily weights, strict intake and output, heart healthy diet - records requested from [facility] recent NSTEMI - troponin x2 lower than previously. He has no chest pain. No new acute ischemia identified on EKG. Continue to monitor symptomatology. - Continue aspirin 81 mg p.o. q.day - medication reconciliation pending and will restart meds as appropriate. CKD, anemia, Hyponatremia. Continue to trend. SCDs. Heart healthy diet. Saline lock IV. patient wishes to be full code. Admit for acute decompensated heart failure , COVID pneumonia bacterial pneumonia. Currently stable. DS: Discharge Diagnosis Discharge Diagnosis (1) Iron deficiency anemia: Code(s): D50.9 - Iron deficiency anemia, unspecified Status: Acute (2) Diabetes mellitus: Code(s): E11.9 - Type 2 diabetes mellitus without complications Status: Acute (3) Pneumonia: Code(s): J18.9 - Pneumonia, unspecified organism Status: Acute (4) COVID: Code(s): U07.1 - COVID-19 Status: Acute (5) Acute decompensated heart failure: Code(s): I50.9 - Heart failure, unspecified Status: Acute (6) HTN (hypertension): Code(s): I10 - Essential (primary) hypertension Status: Acute (7) HLD (hyperlipidemia): Code(s): E78.5 - Hyperlipidemia, unspecified Status: Acute (8) CAD (coronary artery disease): Code(s): I25.10 - Atherosclerotic heart disease of [place] coronary artery without angina pectoris Status: Acute DS: Summary Hospital Course Reason for hospitalization: As patient transferred from [facility]
== END 2024-07-26 15:10 | disposition home or self-care (01) | DRG 177 ==
LOC: ANHED 22:51 → ANHIMU 23:07
PROVIDERS: Internal Medicine; Admitting Provider General Practice; Emergency Provider Emergency Medicine; PCP Internal Medicine; Visit Provider Family Medicine
DX: U07.1 COVID-19 (principal); I21.4 Non-ST elevation (NSTEMI) myocardial infarction; I50.21 Acute systolic (congestive) heart failure; J12.82 Pneumonia due to coronavirus disease 2019; J15.9 Unspecified bacterial pneumonia; D50.9 Iron deficiency anemia, unspecified; E78.5 Hyperlipidemia, unspecified; I25.10 Atherosclerotic heart disease of native coronary artery without angina pectoris; I11.0 Hypertensive heart disease with heart failure; Z87.891 Personal history of nicotine dependence; Z95.1 Presence of aortocoronary bypass graft; Z95.5 Presence of coronary angioplasty implant and graft; Z79.02 Long term (current) use of antithrombotics/antiplatelets; Z79.82 Long term (current) use of aspirin
CPT/HCPCS: 36415; 80048; 80053; 82607; 82746; 82948; 83036; 83540; 83550; 83605; 83735; 83880; 84100; 84145; 84484; 85025; 85730; 87040; 87070; 87205; 87641; 93005; 94640; 96365; 96375; 99285; A9270; C8929; G0378; J0456; J0696; J1756; J1815; J1940; J7050; Q9957

== ENCOUNTER 2024-08-03 11:32 | Outpatient (CLI) | payer MEDICARE, SELFPAY ==
[2024-08-03 11:54] LABS: Basophils Absolute Auto 0.02 K/mm3 (0.00-0.10); Basophils Percent Auto 0.3 % (0.0-1.0); Eosinophils Absolute Auto 0.12 K/mm3 (0.02-0.50); Eosinophils Percent Auto 1.6 % (1.0-6.0); Hematocrit 30.8 % (37.0-46.0); Immature Granulocyte Absolute 0.03 K/mm3 (0.00-0.00); Immature Granulocyte Percent A 0.4 % (0.0-0.0); Immature Platelet Fraction Pct 7.8 % (1.0-7.0); Lymphocytes Absolute Auto 0.82 K/mm3 (1.10-4.50); Lymphocytes Percent Auto 11.1 % (18.0-42.0); Mean Corpuscular HGB Conc 32.5 g/dL (32-36); Mean Corpuscular Hemoglobin 32.8 pg (27.0-31.0); Mean Platelet Volume 12.8 fl (8.7-11.0); Monocytes Absolute Auto 0.67 K/mm3 (0.10-0.90); Monocytes Percent Auto 9.1 % (2.0-11.0); Neutrophils Absolute Auto 5.71 K/mm3 (1.70-7.20); Neutrophils Percent Auto 77.5 % (50.0-70.0); Platelet Count Result 159 K/mm3 (150-420); Red Blood Count 3.05 M/mm3 (4.70-6.10); Red Cell Distribution Width 14.7 % (11.6-14.4); White Blood Count 7.4 K/mm3 (4.8-10.8)
[2024-08-03 13:16] LABS: Alanine Aminotransferase 49 U/L (16-63); Albumin Level 2.9 g/dL (3.4-5.0); Alkaline Phosphatase 106 U/L (46-116); Anion Gap 12 mmol/L (4-12); Aspartate Amino Transferase 42 U/L (15-37); Bilirubin,Total 0.5 mg/dL (0.00-1.00); Blood Urea Nitrogen 24 mg/dL (7-18); Calcium 8.9 mg/dL (8.5-10.1); Carbon Dioxide 23 mmol/L (21-32); Chloride 101 mmol/L (98-108); Estimated Glomerular Filt Rate 53; Ferritin 697 ng/mL (26-388); Glucose 177 mg/dL (70-99); Iron 47 ug/dL (65-175); Osmolality Calculated 290 mOsm/kg (285-295); Potassium 4.6 mmol/L (3.5-5.1); Sodium 136 mmol/L (136-145); Total Protein 6.1 g/dL (6.4-8.2)
[2024-08-03 14:04] LABS: NT Pro B Type Natriuretic Pept 14398 pg/mL (0-125)
== END 2024-08-03 11:33 | disposition home or self-care (01) ==
LOC: CHSLAB 11:34
PROVIDERS: PCP Internal Medicine; Visit Provider Internal Medicine
DX: I50.9 Heart failure, unspecified (principal); I25.10 Atherosclerotic heart disease of native coronary artery without angina pectoris; R06.00 Dyspnea, unspecified; D64.9 Anemia, unspecified
CPT/HCPCS: 36415; 80053; 82728; 83540; 83880; 85025; 85055

== ENCOUNTER 2024-08-06 13:59 | Outpatient (CLI) | payer MEDICARE, SELFPAY ==
[2024-08-06 14:38] LABS: Anion Gap 6 mmol/L (4-12); Blood Urea Nitrogen 21 mg/dL (7-18); Calcium 9.5 mg/dL (8.5-10.1); Carbon Dioxide 26 mmol/L (21-32); Chloride 103 mmol/L (98-108); Estimated Glomerular Filt Rate 55; Glucose 184 mg/dL (70-99); NT Pro B Type Natriuretic Pept 14683 pg/mL (0-125); Osmolality Calculated 288 mOsm/kg (285-295); Potassium 4.3 mmol/L (3.5-5.1); Sodium 135 mmol/L (136-145)
== END 2024-08-06 14:00 | disposition home or self-care (01) ==
PROVIDERS: PCP Internal Medicine; Visit Provider Internal Medicine
DX: I50.9 Heart failure, unspecified (principal)
CPT/HCPCS: 36415; 80048; 83880